=== PATIENT | male | born 1950 | race Caucasian/White ===

== ENCOUNTER 2018-05-08 09:24 | Day surgery (SDC) | payer OTHER ==
[2018-05-07 17:38] VITALS: BMI 30.8
[2018-05-08 09:51] LABS: BASO % 1.1 % (0-2.0); EOS % 1.8 % (0-4.5); HEMATOCRIT 40.4 % (35.4-49); HEMOGLOBIN 13.8 GM/dL (11.7-16.9); LYMPH % 24.4 % (8-40); MCH 31.7 pg (25.7-33.7); MEAN CELL VOLUME 93.2 fl (80-96); MONO % 8.4 % (3.8-10.2); NEUT % 64.3 % (42.8-82.8); PLATELET COUNT 346 K/MM3 (134-434); RBC 4.34 M/mm3 (4.00-5.60); RDW 12.4 % (11.9-15.9); WHITE BLOOD COUNT 7.1 K/mm3 (4.0-10.0)
[2018-05-08 12:47] LABS: INR 1.14 (0.82-1.09); PROTHROMBIN TIME (PATIENT) 12.9 SEC (9.7-13.0)
== END 2018-05-08 10:30 | disposition home or self-care (01) ==
LOC: JRADIR 09:24
PROVIDERS: ATTEND Internal Medicine Pulmonary Disease
PROC: 0W993ZZ Drainage of Right Pleural Cavity, Percutaneous Approach (ICD-10-PCS; principal; 2018-05-08)
DX: Z53.8 Procedure and treatment not carried out for other reasons (principal)
CPT/HCPCS: 36415; 85025; 85610

== ENCOUNTER 2018-05-14 05:50 | Day surgery (SDC) | payer OTHER ==
[2018-05-11 17:56] VITALS: BMI 30.8
[2018-05-14 09:23] VITALS: TEMP 98.5
[2018-05-14 13:13] VITALS: BP 143/93; PULSE 73
[2018-05-14 13:38] LABS: PLEURAL FLUID APPEARANCE CLEAR; PLEURAL FLUID COLOR YELLOW
[2018-05-14 13:39] LABS: PLEURAL FLUID RBC 1508 /mm3
[2018-05-14 14:35] LABS: PLEURAL FLUID LYMPHOCYTES 50 %; PLEURAL FLUID MONOCYTE 26 %; PLEURAL FLUID NEUTROPHIL 9 %
[2018-05-14 14:36] LABS: PLEURAL FLD EOSINOPHIL 14 %; PLEURAL FLUID MESOTHELIAL 2 %
[2018-05-14 20:29] LABS: GLUCOSE,PLEURAL FLUID 98.62
== END 2018-05-14 13:00 | disposition home or self-care (01) ==
LOC: JRADIR 05:50
PROVIDERS: ATTEND Internal Medicine Pulmonary Disease
PROC: 0W993ZZ Drainage of Right Pleural Cavity, Percutaneous Approach (ICD-10-PCS; principal; 2018-05-14)
PROC: BB4BZZZ Ultrasonography of Pleura (ICD-10-PCS; 2018-05-14)
DX: J90 Pleural effusion, not elsewhere classified (principal)
CPT/HCPCS: 32555; 71045-TC-FY; 76942; 82042; 82150; 82945; 83615; 84157; 84311; 84478; 87070; 87075; 87102; 87116; 87205; 87206; 87210; 88108; 88305-TC; 89051

== ENCOUNTER 2018-09-19 14:27 | Inpatient (IN) | payer OTHER ==
--- NOTE | 2018-09-19 15:20 | PDOC ---
History of Present Illness - General Chief Complaint: Pain Stated Complaint: PCP SENT/BACK PAIN Time Seen by Provider: 09/19/18 15:20 History Source: Patient Exam Limitations: No Limitations - History of Present Illness Initial Comments: 09/19/18 16:36 Mr Curran is a 68 year old male with a significant past medical history or recurrent pleural effusions and bronchopneumonia in April 2018 who presents to the emergency department with increased SOB and upper back pain for 5 days. As per the patient's at bedside, the patient was seen at his Dr. Cuellar today for his complaint and was sent here for further evaluation of concern for recurrent pleural effusion and progressive dyspnea (patients heart rate at office was 100 and blood pressure 150/100). As per the patient's , the patient has been experiencing some worsened shortness of breath with mild exertion and reproducible upper thoracic back pain and nonproductive coughing episodes . It is noted that the patient was seen in the hospital for bronchial pneumonia and a right sided parapneumonic pleural effusion in April 2018 s/p uncomplicated thoracentesis. the patient denies any other symptoms. He denies any fever, chills, nausea, vomiting, diarrhea, constipation, or urinary symptoms. He denies any headache, dizziness, numbness, weakness or tingling sensation. He denies any other complaints. PCP Dr Srikanth Grace: Dr. Martinez 09/19/18 17:18 09/19/18 18:03 Past History - Past Medical History Allergies/Adverse Reactions: Allergies Allergy/AdvReac Type Severity Reaction Status Date / Time No Known Drug Allergies Allergy Verified 05/07/18 17:46 Home Medications: Ambulatory Orders Aspirin Coated [Ecotrin -] 81 mg PO DAILY 05/07/18 Doxazosin Mesylate 4 mg PO DAILY 05/07/18 Multivitamin [One Daily] 1 each PO DAILY 05/07/18 Anemia: No Asthma: No Cancer: No Cardiac Disorders: No CVA: No COPD: No CHF: No Dementia: No Diabetes: No GI Disorders: No Disorders: No HTN: No Hypercholesterolemia: No Liver Disease: No Seizures: No Thyroid Disease: No Other medical history: PNA - Surgical History Cardiac Surgery: No Cholecystectomy: No - Suicide/Smoking/Psychosocial Hx Smoking History: Never smoked Have you smoked in the past 12 months: No If you are a former smoker, when did you quit?: 20yrs Information on smoking cessation initiated: No Hx Alcohol Use: No Drug/Substance Use Hx: No Substance Use Type: Alcohol Hx Substance Use Treatment: No Review of Systems - Review of Systems Able to Perform ROS?: Yes Comments:: 09/19/18 16:36 Constitutional: no fevers or chills. HEENT: no headache or dizziness. +congestion. No visual/hearing disturbances. CVS: (+) chest pain. no syncope. Resp: (+)shortness of breath. +cough. No hemoptysis or wheezing Abdomen: no abdominal pain, nausea or vomiting. Genitourinary: no urinary sx, hematuria. MUSCULOSKELETAL: (+)back pain. No joint pain and swelling. No neck pain. SKIN: no redness or skin changes, no discharge, no rash. No wounds. Hematologic: no easy bruising/bleeding. NEUROLOGIC: No headache, dizziness, LOC or altered mental status. No weakness, numbness or tingling. All other systems reviewed and negative, or as documented in HPI. *Physical Exam - Vital Signs Last Vital Signs Temp Pulse Resp BP Pulse Ox 98.9 F 92 H 16 151/89 95 09/19/18 15:10 09/19/18 15:10 09/19/18 15:10 09/19/18 15:10 09/19/18 15:10 - Physical Exam Comments: 09/19/18 16:36 General: Well appearing, awake and alert, NAD. HEENT: NCAT, PERRL, EOMI, clear conjunctiva, anicteric, moist mucus membranes, clear oropharynx, no oral lesions.. Neck: neck supple, FROM, no JVD Resp: (+)decreased breath sounds on the right side. no respiratory distress CVS: RRR, no murmurs, 2+ peripheral pulses throughout, no peripheral edema Abdomen: soft, NTND, no peritoneal signs. Back: (+)reproducible right upper thoracic back tenderness. normal ROM MSK: no edema, ALAS x4, ROM intact. No clubbing or cyanosis. normal bulk and tone. Extrem: no calf tenderness Neuro: alert, oriented appropriately; no focal neurologic deficits Skin: warm and well perfused, cap refill <2 sec, normal color Procedures - Bedside Ultrasound Bedside Ultrasound: Cardiac Remarks: 09/19/18 17:19 POCUS echo and thoracic exam performed, indication includes chest pain/dyspnea. views obtained (PSLA, PSS, A4, SX, b/l lung chong). Findings include normal EF , no pericardial effusion, primarily A lines, RV<LV. +right large pleural effusion with debris and subpleural fluid on right, limiting lung sliding. Impression: large right pleural effusion Heart Score/ECG Review - ECG Impressions Normal ECG: Yes Comment:: 09/19/18 16:37 EKG normal sinus rhythm, no interval abnormalities, narrow QRS, ST and T wave segments and morphology normal. Nonspecific T wave abnormalities ED Treatment Course - LABORATORY CBC & Chemistry Diagram: 09/19/18 15:31 09/19/18 15:31 Medical Decision Making - Medical Decision Making 09/19/18 18:03 68 YOM with prior bronchopneumonia presenting with [facility] and back pain x 5 days. no f/c or sick contacts or other prodrome. DDx CHF, ACS, pleural effusion, pneumonia, viral syndrome, PE, dissection Vital signs reviewed, wnl. mild elevated HR in 90s Prior notes reviewed, including admissions, discharges and consultations. laboratory results and imaging reviewed, basic labs and lytes wnl, notable for neg trop, less likely angina/cardiac CXR_earlier today reviewed with right pleural base blunting, improved from prior , could be new effusion vs infection EKG normal sinus rhythm, no interval abnormalities, narrow QRS, ST and T wave segments and morphology normal. Nonspecific T wave abnormalities ED course: no acute events, remained stable and well appearing. Clinically improved after interventions, including tylenol for analgesia. spiked a fever here Tmax 100.5, blood cultures ordered, treat with ceftriaxone and azithromycin. will need thora to send off culture/stain and chem. Heart visualized in four views using phased array probe ( sub-xiphoid, Parasternal long and short, and apical). normal EF, RV<LV, no pericardial effusion bilateral thorax visualized, large right pleural effusion and subpleural effusion. CTA neg for PE, but large right pleural effusion noted. atelectatic changes found in right lung called to Dr. Martinez, will need comprehensive echo and thoracentesis as inpatient. Dispo: Admit for management of right pleural effusion and dyspnea workup, abx for presumed pna now with fevers. Discussed results and management plan with pt and family member at bedside, agree with impression and plan admit to hospitalist team, pmd Dr. Duke 09/19/18 18:29 09/19/18 18:49 *DC/Admit/Observation/Transfer Diagnosis at time of Disposition: Pleural effusion, Fever, Pneumonia - Discharge Dispostion Condition at time of disposition: Guarded Decision to Admit order: Yes Decision to Admit order Date/Time: 09/19/18 18:09 Decision to Admit Order Category Date Time Status Decision to Admit to Hospital Routine Admission 09/19/18 18:09 Ordered - Referrals Referrals: Aldo Duke MD [Primary Care Provider] - - Patient Instructions - Post Discharge Activity
[2018-09-19 15:46] LABS: BASO % 0.7 % (0-2.0); EOS % 0.8 % (0-4.5); HEMATOCRIT 38.7 % (35.4-49); HEMOGLOBIN 13.4 GM/dL (11.7-16.9); MCH 32.2 pg (25.7-33.7); MCHC 34.7 g/dl (32.0-35.9); MEAN CELL VOLUME 92.8 fl (80-96); MEAN PLT VOLUME 8.4 fl (7.5-11.1); MONO % 10.6 % (3.8-10.2); NEUT % 70.9 % (42.8-82.8); PLATELET COUNT 249 K/MM3 (134-434); RBC 4.18 M/mm3 (4.00-5.60); RDW 13.3 % (11.9-15.9); WHITE BLOOD COUNT 9.9 K/mm3 (4.0-10.0)
[2018-09-19 16:03] LABS: INR 1.08 (0.83-1.09); PROTHROMBIN TIME (PATIENT) 12.7 SEC (9.7-13.0)
[2018-09-19 16:14] LABS: ALBUMIN 3.6 g/dl (3.4-5.0); ALK PHOS 68 U/L (45-117); ANION GAP 10 MMOL/L (8-16); BILIRUBIN,TOTAL 0.6 mg/dL (0.2-1); BLOOD UREA NITROGEN 13 mg/dL (7-18); CALCIUM 8.5 mg/dL (8.5-10.1); CHLORIDE 105 mmol/L (98-107); CO2 27 mmol/L (21-32); CREATININE 0.9 mg/dL (0.55-1.3); GLUCOSE,RANDOM 83 mg/dL (74-106); MAGNESIUM 2.2 mg/dL (1.8-2.4); SGOT/AST 16 U/L (15-37); SGPT/ALT 21 U/L (13-61); SODIUM 142 mmol/L (136-145); TOT PROT 6.9 g/dl (6.4-8.2)
[2018-09-19] MEDS ORDERED: ACETAMINOPHEN 325 MG TABLET (FP) PO ONE (18:04)
[2018-09-19] MEDS ORDERED: ACETAMINOPHEN 325 MG TABLET (FP) ONE (18:11)
[2018-09-19] MEDS ORDERED: CEFTRIAXONE 1,000 MG in DEXTROSE 5%-WATER - 50 ML IVPB ONE (18:28)
[2018-09-19] MEDS ORDERED: AZITHROMYCIN 500 MG TABLET PO ONE (18:28)
[2018-09-19] MEDS ORDERED: CEFTRIAXONE 1 GM/50 ML BAG ONE (18:48)
[2018-09-19] MEDS ORDERED: AZITHROMYCIN 250 MG TABLET ONE (18:48)
[2018-09-19 19:08] LABS: N-TERMINAL BNP 94.1 pg/ml (5-125)
--- NOTE | 2018-09-19 19:41 | PN ---
Teaching Attending Note Name of Resident: Fadi Veliz ATTENDING PHYSICIAN STATEMENT I saw and evaluated the patient. I reviewed the resident's note and discussed the case with the resident. I agree with the resident's findings and plan as documented. SUBJECTIVE: Patient is a 68 year old man with a PMH of recurrent pleural effusions and bronchopneumonia in April 2018 who presents to the ER with increased SOB and upper back pain for 5 days. As per the patient's at bedside, the patient was seen at Dr. Cuellar office today for his complaint and was sent here for further evaluation of concern for recurrent pleural effusion and progressive dyspnea (patients heart rate at office was 100 and blood pressure 150/100). Patient has been experiencing some worsened SOB with mild exertion and reproducible upper thoracic back pain and nonproductive coughing episodes. Patient was seen in the hospital for bronchial pneumonia and a right sided parapneumonic pleural effusion in April 2018 s/p uncomplicated thoracentesis. He denies fever, chills, nausea, vomiting, diarrhea, constipation or dysuria. OBJECTIVE: Alert Vital Signs Period Temp Pulse Resp BP Sys/Bang Pulse Ox Last 24 Hr 98 F-100.5 F 88-95 16-18 151-167/89-96 95-100 HEENT: No Jaundice, eye redness or discharge, PERRLA, EOMI. Normocephalic, atraumatic. External ears are normal and hearing is grossly intact. No nasal discharge. Neck: Supple, nontender. No palpable adenopathy or thyromegaly. No JVD Chest: Diminished breath sounds right base. Good effort. Clear to percussion. Heart: Regular. No S3, rub or murmur Abdomen: Not distended, soft, nontender and no HSM. No rebound or guarding. Normoactive bowel sounds. Ext: Peripheral pulses intact. No leg edema. Skin: Warm and dry. No petechiae, rash or ecchymosis. Neuro: Alert. Oriented x3. CN 2-12 grossly intact. Sensation grossly intact in all four extremities and DTR are symmetric. Home Medications Medication Instructions Recorded Aspirin Coated [Ecotrin -] 81 mg PO DAILY 05/07/18 Doxazosin Mesylate 4 mg PO DAILY 05/07/18 Multivitamin [One Daily] 1 each PO DAILY 05/07/18 Abnormal Lab Results 09/19/18 15:31 Monocytes % 10.6 H ASSESSMENT AND PLAN: 1. Right pleural effusion - Patient has recurrent right side effusion with prior analysis showing a transudate. Will consult IR for therapeutic thoracentesis, get ECHO and legionella/influenza testing in view of URI symptoms. Consult Pulmonary/ID for fpc plan of care for recurrent effusion. No indication for antibiotics at this time. 2. Obesity - Will provide patient all the necessary assistance, counseling and positive reinforcement to facilitate weight loss. Consult vp hr diversity. 3. DVT prophylaxis - Lovenox 40 mg SQ q 24 hours. 4. Advance directives - Full code
[2018-09-20 04:18] VITALS: BMI 30.2
[2018-09-20] MEDS ORDERED: amLODIPine BESYLATE 5 MG TABLET (FP) PO ONE (04:27)
--- NOTE | 2018-09-20 05:06 | HP ---
CHIEF COMPLAINT: Non productive cough, shortness of breath PCP: Dr. Duke HISTORY OF PRESENT ILLNESS: Patient is a 68 year old male with history of BPH, and prior pleural effusion s/ p thoracentesis 05/2018, presents with complaint of nonproductive cough and shortness of breath for the past 5 days. Symptoms began approx 2 weeks ago with nasal congestion, rhinnorhea, and sore throat. The symptoms resolved, and patient now complains only of cough. Endorses associated sharp, midline, chest pain reproducible with cough, and upper back pain also described as sharp by right scapular border with cough. Endorses the upper back pain is similar to pain he experienced with prior pleural effusion. He has not tried any medications for palliation, however did see Dr. Martinez who recommended he come to the emergency department for further evaluation. Denies falls, loss of conciousness, fevers, chills, palpitations, abdominal pain, nausea, vomiting, diarrhea, constipation, dysuria, hematuria. ER course was notable for: (1) Chest X-ray, CTA chest (2) Azithromycin 500mg PO (3) PAST MEDICAL HISTORY: BPH, prior pleural effusion s/p thoracentesis 05/2018 PAST SURGICAL HISTORY: thoracentesis 05/2018 Social History: Smoking: Former smoker of 1 pack per day for 20 years. Quit 20 years ago. Alcohol: Admits one alcoholic drink per day Drugs: denies Family History: Father at 61 y/o due to CT. Mother massed away at 70 year old due to liver cancer Allergies: Denies food or medication allergies No Known Drug Allergies Allergy (Verified 05/07/18 17:46) HOME MEDICATIONS: Home Medications Medication Instructions Recorded Aspirin Coated [Ecotrin -] 81 mg PO DAILY 05/07/18 Doxazosin Mesylate 4 mg PO DAILY 05/07/18 Multivitamin [One Daily] 1 each PO DAILY 05/07/18 REVIEW OF SYSTEMS CONSTITUTIONAL: Absent: fever, chills, diaphoresis, generalized weakness, malaise, loss of appetite, weight change HEENT: Absent: rhinorrhea, nasal congestion, throat pain, throat swelling, difficulty swallowing, mouth swelling, ear pain, eye pain, visual changes CARDIOVASCULAR: Absent: chest pain, syncope, palpitations, irregular heart rate, lightheadedness , peripheral edema RESPIRATORY: Admits: nonproductive cough, shortness of breath. Absent: dyspnea with exertion , orthopnea, wheezing, stridor, hemoptysis GASTROINTESTINAL: Absent: abdominal pain, abdominal distension, nausea, vomiting, diarrhea, constipation, melena, hematochezia GENITOURINARY: Absent: dysuria, frequency, urgency, hesitancy, hematuria, flank pain, genital pain MUSCULOSKELETAL: Absent: myalgia, arthralgia, joint swelling, back pain, neck pain SKIN: Absent: rash, itching, pallor HEMATOLOGIC/IMMUNOLOGIC: Absent: easy bleeding, easy bruising, lymphadenopathy, frequent infections ENDOCRINE: Absent: unexplained weight gain, unexplained weight loss, heat intolerance, cold intolerance NEUROLOGIC: Absent: headache, focal weakness or paresthesias, dizziness, unsteady gait, seizure, mental status changes, bladder or bowel incontinence PSYCHIATRIC: Absent: anxiety, depression, suicidal or homicidal ideation, hallucinations. PHYSICAL EXAMINATION Vital Signs - 24 hr 09/19/18 09/19/18 09/19/18 14:27 15:10 16:43 Temperature 98 F 98.9 F Pulse Rate 95 H Pulse Rate [ 92 H 88 Left Apical] Respiratory 16 16 16 Rate Blood Pressure 156/92 Blood Pressure 151/89 163/95 [Left Arm] O2 Sat by Pulse 96 95 98 Oximetry (%) 09/19/18 09/19/18 09/19/18 18:15 22:00 22:04 Temperature 100.5 F H 98.3 F 98.3 F Pulse Rate 86 86 Pulse Rate [ 92 H Left Apical] Respiratory 18 20 20 Rate Blood Pressure 148/96 148/96 Blood Pressure 167/96 [Left Arm] O2 Sat by Pulse 100 100 Oximetry (%) 09/20/18 02:04 Temperature 98.1 F Pulse Rate 86 Pulse Rate [ Left Apical] Respiratory 20 Rate Blood Pressure 158/96 Blood Pressure [Left Arm] O2 Sat by Pulse Oximetry (%) GENERAL: Awake, alert, and fully oriented, in no acute distress. HEAD: Normal with no signs of trauma. EYES: Pupils equal, round and reactive to light, extraocular movements intact, sclera anicteric, conjunctiva clear. No lid lag. EARS, NOSE, THROAT: Ears normal, nares patent, oropharynx clear without exudates. Moist mucous membranes. NECK: Normal range of motion, supple without lymphadenopathy, JVD, or masses. LUNGS: Good inspiratory effort. Diminished air entry right lower lobe of lung. Dullness to percussion lower lower third of right lung. No wheezes, or rhonchi auscultated b/l. No accessory muscles of respiration used. HEART: Regular rate and rhythm, normal S1 and S2 with 3/6 holosystolic murmur auscultated loudest at right upper sternal border radiating to b/l carotid arteries. ABDOMEN: Soft, nontender, not distended. Normoactive bowel sounds X4 quadrants. No guarding, no rebound tenderness. No hepatomegaly or splenomegaly palpated or percussed. MUSCULOSKELETAL: Normal range of motion at all joints. No bony deformities or tenderness. No CVA tenderness. UPPER EXTREMITIES: 2+ radial pulses b/l, warm, well-perfused. LOWER EXTREMITIES: 2+ dorsalis pedis pulses b/l, warm, well-perfused. No calf tenderness. No peripheral edema b/l. NEUROLOGICAL: Cranial nerves II-XII intact. Normal speech. Normal gait. PSYCHIATRIC: Cooperative. Good eye contact. Appropriate mood and affect upon my encounter. SKIN: Warm, dry. Laboratory Results - last 24 hr 09/19/18 09/19/18 09/19/18 15:31 15:31 15:31 WBC 9.9 RBC 4.18 Hgb 13.4 Hct 38.7 MCV 92.8 MCH 32.2 MCHC 34.7 RDW 13.3 Plt Count 249 D MPV 8.4 Absolute Neuts (auto) 7.0 Neutrophils % 70.9 Lymphocytes % 17.0 D Monocytes % 10.6 H Eosinophils % 0.8 Basophils % 0.7 Nucleated RBC % 0 PT with INR 12.70 INR 1.08 Sodium 142 Potassium 4.0 Chloride 105 Carbon Dioxide 27 Anion Gap 10 BUN 13 Creatinine 0.9 Creat Clearance w eGFR > 60 Random Glucose 83 Calcium 8.5 Magnesium 2.2 Total Bilirubin 0.6 AST 16 ALT 21 Alkaline Phosphatase 68 Creatine Kinase 129 Troponin I < 0.02 B-Natriuretic Peptide 94.1 Total Protein 6.9 Albumin 3.6 Blood Type Antibody Screen 09/19/18 09/19/18 16:19 22:00 WBC RBC Hgb Hct MCV MCH MCHC RDW Plt Count MPV Absolute Neuts (auto) Neutrophils % Lymphocytes % Monocytes % Eosinophils % Basophils % Nucleated RBC % PT with INR INR Sodium Potassium Chloride Carbon Dioxide Anion Gap BUN Creatinine Creat Clearance w eGFR Random Glucose Calcium Magnesium Total Bilirubin AST ALT Alkaline Phosphatase Creatine Kinase Troponin I B-Natriuretic Peptide Total Protein Albumin Blood Type A POSITIVE A POSITIVE Antibody Screen Negative ASSESSMENT/PLAN: Patient is a 68 year old male with history of BPH, and prior pleural effusion s/ p thoracentesis 05/2018, presents with complaint of nonproductive cough and shortness of breath for the past 5 days. Pleural effusion right lower lobe -CTA confirms large pleural effusion. Negative for infiltrate, pericardial effusion, or pulmonary embolism. Prior effusion also localized to RLL. AFB negative, however no pathology noted. Appears to have been ?transudative -F/U pulmonology consult Dr. Martinez -F/U cardiac ECHO to rule out cardiac etiology of recurrent effusion -NPO pending pulmonology evaluation, and thoracentesis BPH -Doxazosin 4mg PO daily FEN -No IV fluids -Follow CMP -NPO Prophylaxis -SCDs, TEDs b/l lower extremities. Holding chemical anticoagulation in anticipation for likely thoracentesis Disposition -Observe in medical surgical floor. Visit type - Emergency Visit Emergency Visit: Yes ED Registration Date: 09/19/18 Care time: The patient presented to the Emergency Department on the above date and was hospitalized for further evaluation of their emergent condition. - New Patient This patient is new to me today: Yes Date on this admission: 09/20/18 - Critical Care Critical Care patient: No
[2018-09-20 07:29] LABS: HEMATOCRIT 41.2 % (35.4-49); HEMOGLOBIN 13.9 GM/dL (11.7-16.9); MCH 31.3 pg (25.7-33.7); MCHC 33.7 g/dl (32.0-35.9); MEAN PLT VOLUME 8.5 fl (7.5-11.1); PLATELET COUNT 232 K/MM3 (134-434); RBC 4.43 M/mm3 (4.00-5.60); RDW 13.3 % (11.9-15.9); WHITE BLOOD COUNT 8.5 K/mm3 (4.0-10.0)
[2018-09-20 07:50] LABS: INR 1.07 (0.83-1.09); PROTHROMBIN TIME (PATIENT) 12.6 SEC (9.7-13.0)
[2018-09-20 07:53] LABS: ACTIVATED PTT 30.9 SECONDS (25.2-36.5)
[2018-09-20 07:54] LABS: ALBUMIN 3.5 g/dl (3.4-5.0); ALK PHOS 74 U/L (45-117); ANION GAP 10 MMOL/L (8-16); BILIRUBIN,TOTAL 0.8 mg/dL (0.2-1); BLOOD UREA NITROGEN 11 mg/dL (7-18); CALCIUM 8.7 mg/dL (8.5-10.1); CHLORIDE 105 mmol/L (98-107); CO2 25 mmol/L (21-32); CREATININE 0.7 mg/dL (0.55-1.3); GLUCOSE,RANDOM 89 mg/dL (74-106); MAGNESIUM 2.2 mg/dL (1.8-2.4); PHOSPHOROUS 3.1 mg/dL (2.5-4.9); POTASSIUM 4.5 mmol/L (3.5-5.1); SGOT/AST 17 U/L (15-37); SGPT/ALT 19 U/L (13-61); SODIUM 140 mmol/L (136-145)
[2018-09-20] MEDS ORDERED: PT OWN MED DRAWER 7, Y5N ONE (09:45)
[2018-09-20] MEDS ORDERED: DOXAZOSIN MESYLATE 4 MG TABLET PO SCH ×2 (10:00→10:36)
--- NOTE | 2018-09-20 10:13 | PN ---
Progress Note, Physician Chief Complaint: Pt sitting in bed in no acute distress. reports sob over the last 5 days similar to prev time when he had pleural effusion. also reports pleuritic pain. Otherwise, denies any worsening sob, chest pain, n/v/d - Current Medication List Current Medications: Active Medications Doxazosin Mesylate (Cardura -) 4 mg PO DAILY CEFERINO - Objective Vital Signs: Vital Signs Temperature 98.0 F 09/20/18 07:09 Pulse Rate 91 H 09/20/18 07:09 Respiratory Rate 20 09/20/18 07:09 Blood Pressure 143/86 09/20/18 07:09 O2 Sat by Pulse Oximetry (%) 100 09/20/18 06:04 Constitutional: Yes: Well Nourished, No Distress, Calm Cardiovascular: Yes: Regular Rate and Rhythm, Murmur Respiratory: Yes: Regular, Diminished (diminished to absent RLL,RML), SOB. No: Accessory Muscle Use, Tachypnea, Wheezes Gastrointestinal: Yes: WNL, Normal Bowel Sounds, Soft. No: Distention, Tenderness Genitourinary: Yes: WNL Musculoskeletal: Yes: WNL Extremities: Yes: WNL Edema: No Neurological: Yes: WNL, Alert, Oriented Psychiatric: Yes: WNL, Alert, Oriented Labs: CBC, BMP 09/20/18 06:00 09/20/18 06:00 INR, PTT INR 1.07 (0.83-1.09) 09/20/18 06:00 Problem List - Problems (1) Pleural effusion Assessment/Plan: s/p right thoracentesis 04/30- pleural fluid exudate, cytology not sent at that time now presents with large right pleural effusion w/ compressive atelectasis +febrile, cough, tachycardia, +pleurisy pt clinically appears well, satting high 90s on RA antibx coverage for hcap- azithromycin, ceftriaxone day 2 plan for thoracentesis today repeat chest CT post procedure pleural fluid culture/analysis/cytology studies ordered pulm following Code(s): J90 - PLEURAL EFFUSION, NOT ELSEWHERE CLASSIFIED (2) Pneumonia Assessment/Plan: as above Code(s): J18.9 - PNEUMONIA, UNSPECIFIED ORGANISM Qualifiers: Laterality: right Lung location: lower lobe of lung (3) Fever Assessment/Plan: 2/2 pna Code(s): R50.9 - FEVER, UNSPECIFIED Qualifiers: Encounter type: initial encounter (4) BPH (benign prostatic hyperplasia) Assessment/Plan: stable continue cardura Code(s): N40.0 - BENIGN PROSTATIC HYPERPLASIA WITHOUT LOWER URINRY TRACT SYMP Qualifiers: Lower urinary tract symptom presence: symptoms absent Qualified Code(s): N40.0 - Benign prostatic hyperplasia without lower urinary tract symptoms (5) Elevated BP without diagnosis of hypertension Assessment/Plan: BP in 140s-150s cardura increased to 8mg defer initiation of antihypersive agents to outpt as bps could be situational monitor Code(s): R03.0 - ELEVATED BLOOD-PRESSURE READING, W/O DIAGNOSIS OF HTN
--- NOTE | 2018-09-20 11:11 | EKG ---
Test Reason : Blood Pressure : / mmHG Vent. Rate : 095 BPM Atrial Rate : 095 BPM P-R Int : 152 ms QRS Dur : 088 ms QT Int : 346 ms P-R-T Axes : 038 -18 052 degrees QTc Int : 434 ms NORMAL SINUS RHYTHM MODERATE VOLTAGE CRITERIA FOR LVH, MAY BE NORMAL VARIANT BORDERLINE ECG NO PREVIOUS ECGS AVAILABLE Confirmed by HAYLEY HUBBARD MD ([id number]) on 09/20/2018 11:10:41 AM Referred By: Confirmed By:HAYLEY HUBBARD MD
--- NOTE | 2018-09-20 11:31 | ECHO ---
Name: MASTER RICH Exam:Adult Echocardiogram Study Date: 09/20/2018 08:23 AM Age: 68 yrs Reason For Study: r/o valvular disease, murmur, pt has pneumonia Height: 70 in Weight: 210 lb BSA: 2.1 m2 MMode/2D Measurements & Calculations IVSd: 1.0 cm Ao root diam: 3.1 cm LVIDd: 4.4 cm LA dimension: 2.5 cm LVIDs: 3.3 cm LVPWd: 1.1 cm LVPWs: 0.90 cm EDV(Teich): 89.9 ml ESV(Teich): 44.6 ml LVOT diam: 2.0 cm TAPSE: 2.1 cm Doppler Measurements & Calculations MV E max farzad: 68.6 cm/sec Ao V2 max: 324.8 cm/sec MV A max farazd: 92.8 cm/sec Ao max P.6 mmHg MV E/A: 0.74 Ao V2 mean: 241.0 cm/sec MV dec time: 0.11 sec Ao mean P.7 mmHg Ao V2 VTI: 74.3 cm AI P1/2t: 309.0 msec ASIF(V,D): 0.92 cm2 AI max farzad: 365.3 cm/sec LV V1 max P.6 mmHg AI max P.4 mmHg LV V1 max: 94.8 cm/sec AI dec slope: 346.2 cm/sec2 MR max farzad: 323.9 cm/sec TV V2 max: 271.5 cm/sec MR max P.0 mmHg TV max P.5 mmHg PA V2 max: 115.4 cm/sec Med Peak E' Farzad: 4.4 cm/sec PA max P.3 mmHg Med E/e': 15.6 Lat Peak E' Farzad: 5.7 cm/sec Lat E/e': 12.1 Procedure A complete two-dimensional transthoracic echocardiogram was performed (2D, M-mode, Doppler and color flow Doppler). Left Ventricle The left ventricular size, thickness and function are normal. The left ventricular ejection fraction is normal. Ejection Fraction = 60-65%. The left ventricular wall motion is normal. Right Ventricle The right ventricle is normal in size and function. Atria Normal left and right atrial size and function. Mitral Valve There is no mitral regurgitation noted. Tricuspid Valve No tricuspid regurgitation. There was insufficient TR detected to calculate RV systolic pressure. Aortic Valve Moderate valvular aortic stenosis. Trace aortic regurgitation. Pulmonic Valve There is no pulmonic valvular regurgitation. Great Vessels The aortic root is normal size. Pericardium/Pleura There is no pericardial effusion. Interpretation Summary The left ventricular size, thickness and function are normal The right ventricle is normal in size and function. Trace aortic regurgitation. Moderate valvular aortic stenosis. MD Jae Mac 09/20/2018 11:30 AM
--- NOTE | 2018-09-20 11:57 | CON.PULM ---
Consult Consult Specialty:: PULMONARY Referred by:: Dr. Martinez Reason for Consultation:: pleural effusion - History of Present Illness Chief Complaint: shortness of breath History of Present Illness: 68yo male with h/o BPH who presents with worsening shortness of breath and cough x 5 days. Found to have a large right sided pleural effusion. He was found to have a large right sided pleural effusion in April and had a thoracentesis in May with the fluid analysis consistent with an exudate. Cultures were negative but cytology does not appear to have been sent. He denies any chest pain or discomfort other than when coughing. No fevers, chills or sweats. No unintentional weight loss. He is a former smoker about 1 PPD x 20 years, quit over 30 years ago. No history of cancer in the family. - History Source History Provided By: Patient, Medical Record Limitations to Obtaining History: No Limitations - Past Medical History Renal/: Yes: BPH - Alcohol/Substance Use Hx Alcohol Use: No - Smoking History Smoking history: Former smoker Have you smoked in the past 12 months: No If you are a former smoker, when did you quit?: 20yrs Home Medications - Allergies Allergies/Adverse Reactions: Allergies Allergy/AdvReac Type Severity Reaction Status Date / Time No Known Drug Allergies Allergy Verified 05/07/18 17:46 - Home Medications Home Medications: Ambulatory Orders Aspirin Coated [Ecotrin -] 81 mg PO DAILY 05/07/18 Doxazosin Mesylate 4 mg PO DAILY 05/07/18 Multivitamin [One Daily] 1 each PO DAILY 05/07/18 Review of Systems - Review of Systems Constitutional: denies: Chills, Fever, Weakness Eyes: denies: Recent Change in Vision HENT: denies: Nasal Congestion, Throat Pain Neck: denies: Stiffness, Tenderness Cardiovascular: reports: Chest Pain, Shortness of Breath Respiratory: reports: Cough. denies: Hemoptysis, Wheezing Gastrointestinal: denies: Abdominal Pain, Nausea, Vomiting Genitourinary: denies: Dysuria, Hematuria Neurological: denies: Dizziness, Headache Endocrine: denies: Unexplained Weight Loss Physical Exam Vital Sings: Vital Signs Temperature 98.0 F 09/20/18 07:09 Pulse Rate 91 H 09/20/18 07:09 Respiratory Rate 20 09/20/18 07:09 Blood Pressure 143/86 09/20/18 07:09 O2 Sat by Pulse Oximetry (%) 100 09/20/18 06:04 Constitutional: Yes: No Distress, Calm Eyes: Yes: Conjunctiva Clear, EOM Intact HENT: Yes: Atraumatic, Normocephalic Neck: Yes: Supple, Trachea Midline Cardiovascular: Yes: Regular Rate and Rhythm, Murmur Respiratory: Yes: Diminished (decreased breath sounds right base 1/2 up) ...Clubbing: No Gastrointestinal: Yes: Normal Bowel Sounds, Soft. No: Tenderness Edema: No Neurological: Yes: Alert, Oriented Labs: CBC, BMP 09/20/18 06:00 09/20/18 06:00 Imaging - Results Chest X-ray: Report Reviewed, Image Reviewed Cat Scan: Report Reviewed, Image Reviewed (large right effusion with atelectasis ) Problem List - Problems (1) Pleural effusion Code(s): J90 - PLEURAL EFFUSION, NOT ELSEWHERE CLASSIFIED (2) BPH (benign prostatic hyperplasia) Code(s): N40.0 - BENIGN PROSTATIC HYPERPLASIA WITHOUT LOWER URINRY TRACT SYMP Qualifiers: Lower urinary tract symptom presence: symptoms absent Qualified Code(s): N40.0 - Benign prostatic hyperplasia without lower urinary tract symptoms Assessment/Plan Right Pleural Effusion BPH - recommend right sided thoracentesis - send fluid for cell count, LDH, total protein, glucose, cholesterol, cultures and cytology - add on LDH to serum studies from same day as thoracentesis - may need repeat CT chest noncontrast after fluid drained to assess underlying pulmonary parenchyma - DVT prophylaxis Thank you for this consult Jm Lozano MD
[2018-09-20] MEDS ORDERED: DEXTROSE 5%-WATER - 50 ML IVPB ONE (12:11)
[2018-09-20] MEDS ORDERED: cefTRIAXone SODIUM 1 GM VIAL ONE (12:11)
[2018-09-20 15:25] LABS: PLEURAL FLUID APPEARANCE CLEAR; PLEURAL FLUID COLOR YELLOW; PLEURAL FLUID RBC 1920 /mm3
[2018-09-20] MEDS: AZITHROMYCIN 250 MG TABLET PO SCH (15:33)
[2018-09-20] MEDS: CEFTRIAXONE 1 GM in DEXTROSE 5%-WATER - 50 ML IVPB SCH (15:33)
[2018-09-20 18:02] LABS: BODY FLUID MACROPHAGES 15 %; BODY FLUID MESOTHELIAL 10 %; PLEURAL FLUID LYMPHOCYTES 30 %; PLEURAL FLUID NEUTROPHIL 45 %
[2018-09-21 07:19] LABS: BASO % 0.5 % (0-2.0); EOS % 0.9 % (0-4.5); HEMATOCRIT 44.3 % (35.4-49); LYMPH % 20.5 % (8-40); MCH 31.8 pg (25.7-33.7); MCHC 33.8 g/dl (32.0-35.9); MEAN CELL VOLUME 93.9 fl (80-96); MEAN PLT VOLUME 8.4 fl (7.5-11.1); MONO % 7.2 % (3.8-10.2); NEUT % 70.9 % (42.8-82.8); PLATELET COUNT 270 K/MM3 (134-434); RBC 4.72 M/mm3 (4.00-5.60); RDW 13.3 % (11.9-15.9); WHITE BLOOD COUNT 8.8 K/mm3 (4.0-10.0)
[2018-09-21 08:26] LABS: ANION GAP 13 MMOL/L (8-16); BLOOD UREA NITROGEN 15 mg/dL (7-18); CALCIUM 9.2 mg/dL (8.5-10.1); CHLORIDE 104 mmol/L (98-107); CO2 24 mmol/L (21-32); CREATININE 0.9 mg/dL (0.55-1.3); GLUCOSE,RANDOM 92 mg/dL (74-106); POTASSIUM 4.1 mmol/L (3.5-5.1); SODIUM 141 mmol/L (136-145)
[2018-09-21] MEDS ORDERED: cefTRIAXone SODIUM 1 GM VIAL ONE (09:02)
[2018-09-21] MEDS ORDERED: DEXTROSE 5%-WATER - 50 ML IVPB ONE (09:02)
[2018-09-21] MEDS ORDERED: PT OWN MED DRAWER 7, Y5N ONE (09:03)
[2018-09-21] MEDS: AZITHROMYCIN 250 MG TABLET PO SCH (09:53)
[2018-09-21] MEDS: CEFTRIAXONE 1 GM in DEXTROSE 5%-WATER - 50 ML IVPB SCH (09:54)
--- NOTE | 2018-09-21 11:45 | CON.CARD ---
Cardiology Consult (text) - Consultation Consultation Note: cc: sob hpi: 68 m hx bph here with sob, cough for 5 days. Had right pleural eff 2017 and was drained, exudative. No cp, palps dizzy loc pnd orthopnea le edema. Now ct here again shows large right eff, s/p thoracentesis again yesterday, sob better now. pmh: per hpi psh: per hpi social: ex tob fam: no premature cad, scd ros: per hpi; no nvd vision changes gib hematuria, dysuria muscle pain fever meds: Home Medications Medication Instructions Recorded Aspirin Coated [Ecotrin -] 81 mg PO DAILY 05/07/18 Doxazosin Mesylate 4 mg PO DAILY 05/07/18 Multivitamin [One Daily] 1 each PO DAILY 05/07/18 pe: Vital Signs Period Temp Pulse Resp BP Sys/Bang Pulse Ox Last 24 Hr 98.0 F-98.9 F 88-99 18-20 126-138/82-98 98 nad no jvd rrr s1s2 +as murmur, no rg cta bl nl eff aaox3 no le e/c/c abd nt nd pos bs no jaundice diaphoresis pos dp pt no carotid bruits Laboratory Last Values WBC 8.8 K/mm3 (4.0-10.0) 09/21/18 06:00 RBC 4.72 M/mm3 (4.00-5.60) 09/21/18 06:00 Hgb 15.0 GM/dL (11.7-16.9) 09/21/18 06:00 Hct 44.3 % (35.4-49) 09/21/18 06:00 MCV 93.9 fl (80-96) 09/21/18 06:00 MCH 31.8 pg (25.7-33.7) 09/21/18 06:00 MCHC 33.8 g/dl (32.0-35.9) 09/21/18 06:00 RDW 13.3 % (11.9-15.9) 09/21/18 06:00 Plt Count 270 K/MM3 (134-434) 09/21/18 06:00 MPV 8.4 fl (7.5-11.1) 09/21/18 06:00 Absolute Neuts (auto) 6.3 K/mm3 (1.5-8.0) 09/21/18 06:00 Neutrophils % 70.9 % (42.8-82.8) 09/21/18 06:00 Lymphocytes % 20.5 % (8-40) D 09/21/18 06:00 Monocytes % 7.2 % (3.8-10.2) 09/21/18 06:00 Eosinophils % 0.9 % (0-4.5) 09/21/18 06:00 Basophils % 0.5 % (0-2.0) 09/21/18 06:00 Nucleated RBC % 0 % (0-0) 09/21/18 06:00 PT with INR 12.60 SEC (9.7-13.0) 09/20/18 06:00 INR 1.07 (0.83-1.09) 09/20/18 06:00 PTT (Actin FS) 30.9 SECONDS (25.2-36.5) 09/20/18 06:00 Sodium 141 mmol/L (136-145) 09/21/18 06:00 Potassium 4.1 mmol/L (3.5-5.1) 09/21/18 06:00 Chloride 104 mmol/L (98-107) 09/21/18 06:00 Carbon Dioxide 24 mmol/L (21-32) 09/21/18 06:00 Anion Gap 13 MMOL/L (8-16) 09/21/18 06:00 BUN 15 mg/dL (7-18) 09/21/18 06:00 Creatinine 0.9 mg/dL (0.55-1.3) 09/21/18 06:00 Creat Clearance w eGFR > 60 (>60) 09/21/18 06:00 Random Glucose 92 mg/dL (74-106) 09/21/18 06:00 Calcium 9.2 mg/dL (8.5-10.1) 09/21/18 06:00 Phosphorus 3.1 mg/dL (2.5-4.9) 09/20/18 06:00 Magnesium 2.2 mg/dL (1.8-2.4) 09/20/18 06:00 Total Bilirubin 0.8 mg/dL (0.2-1) 09/20/18 06:00 AST 17 U/L (15-37) 09/20/18 06:00 ALT 19 U/L (13-61) 09/20/18 06:00 Alkaline Phosphatase 74 U/L (45-117) 09/20/18 06:00 Creatine Kinase 129 IU/L (26-308) 09/19/18 15:31 Troponin I < 0.02 ng/ml (0.00-0.05) 09/19/18 15:31 B-Natriuretic Peptide 94.1 pg/ml (5-125) 09/19/18 15:31 Total Protein 7.0 g/dl (6.4-8.2) 09/20/18 06:00 Albumin 3.5 g/dl (3.4-5.0) 09/20/18 06:00 Fluid Other Cells Binder Layer 09/20/18 13:45 Pleural Fluid Source Pleural 09/20/18 13:45 Pleural Color Yellow 09/20/18 13:45 Pleural Appearance Clear 09/20/18 13:45 Pleural WBC 740 /mm3 09/20/18 13:45 Pleural RBC 1920 /mm3 09/20/18 13:45 Pleural Neutrophils 45 % 09/20/18 13:45 Pleural Lymphocytes 30 % 09/20/18 13:45 Pleural Macrophages 15 % 09/20/18 13:45 Pleural Mesothelial 10 % 09/20/18 13:45 Blood Type A POSITIVE 09/19/18 22:00 Antibody Screen Negative 09/19/18 16:19 ecg: sr, nl intervals, no ischemic changes cta chest: no pe, large right eff echo 09/2018: nl lv/rv, mod as a/p: 68 m hx bph here with sob, cough for 5 days. sob, pleural eff: -Had right pleural eff 05/2018 and thoracentesis showing exudative fluid. Now ct here again shows large right eff, s/p thoracentesis again. -no signs of chf, bnp low, echo w/o etiology for right sided effusion -plans per pulm as: -echo shows moderate -no signs of symptomatic , routine outpt monitoring
--- NOTE | 2018-09-21 12:28 | PN ---
Progress Note, Physician - Current Medication List Current Medications: Active Medications Azithromycin (Zithromax -) 500 mg PO DAILY [facility] Stop: 09/22/18 10:01 Last Admin: 09/21/18 09:53 Dose: 500 mg Doxazosin Mesylate (Cardura -) 8 mg PO DAILY [facility] Last Admin: 09/21/18 09:54 Dose: 8 mg Ceftriaxone Sodium 1 gm/ (Dextrose) 50 mls @ 100 mls/hr IVPB DAILY CEFERINO; Protocol Last Admin: 09/21/18 09:54 Dose: 100 mls/hr - Objective Vital Signs: Vital Signs Temperature 98.2 F 09/21/18 06:00 Pulse Rate 88 09/21/18 06:00 Respiratory Rate 18 09/21/18 06:00 Blood Pressure 138/85 09/21/18 06:00 O2 Sat by Pulse Oximetry (%) 98 09/20/18 21:00 Labs: CBC, BMP 09/21/18 06:00 09/21/18 06:00 INR, PTT INR 1.07 (0.83-1.09) 09/20/18 06:00 Problem List - Problems (1) Pleural effusion Code(s): J90 - PLEURAL EFFUSION, NOT ELSEWHERE CLASSIFIED (2) Pneumonia Code(s): J18.9 - PNEUMONIA, UNSPECIFIED ORGANISM Qualifiers: Laterality: right Lung location: lower lobe of lung (3) Fever Code(s): R50.9 - FEVER, UNSPECIFIED Qualifiers: Encounter type: initial encounter (4) BPH (benign prostatic hyperplasia) Code(s): N40.0 - BENIGN PROSTATIC HYPERPLASIA WITHOUT LOWER URINRY TRACT SYMP Qualifiers: Lower urinary tract symptom presence: symptoms absent Qualified Code(s): N40.0 - Benign prostatic hyperplasia without lower urinary tract symptoms (5) Elevated BP without diagnosis of hypertension Code(s): R03.0 - ELEVATED BLOOD-PRESSURE READING, W/O DIAGNOSIS OF HTN
--- NOTE | 2018-09-21 13:36 | PN ---
Progress Note (short form) - Note Progress Note: PULMONARY CHART REVIEWED PATIENT EXAMINED STABLE POST TAP AWAIT CYTOLOGY NO OBJECTION TO DISCHARGE F/U OUTPATIENT Elida FOSTER MD
--- NOTE | 2018-09-21 13:45 | DS ---
Physical Examination Vital Signs: Vital Signs Temperature 98.2 F 09/21/18 06:00 Pulse Rate 88 09/21/18 10:00 Respiratory Rate 18 09/21/18 10:00 Blood Pressure 144/84 09/21/18 10:00 O2 Sat by Pulse Oximetry (%) 95 09/21/18 09:00 Constitutional: Yes: Well Nourished, No Distress, Calm Cardiovascular: Yes: Regular Rate and Rhythm, Murmur Respiratory: Yes: Regular, Diminished (RLL), Rales. No: Accessory Muscle Use, Rhonchi, SOB, Tachypnea, Wheezes Gastrointestinal: Yes: WNL, Normal Bowel Sounds, Soft. No: Distention, Tenderness Renal/: Yes: WNL Edema: No Neurological: Yes: WNL, Alert, Oriented Psychiatric: Yes: WNL, Alert, Oriented Labs: CBC, BMP 09/21/18 06:00 09/21/18 06:00 Discharge Summary Reason For Visit: PLEURAL EFFUSION,FEVER,PNEUMONIA Current Active Problems BPH (benign prostatic hyperplasia) (Acute) Elevated BP without diagnosis of hypertension (Acute) Fever (Acute) Pleural effusion (Acute) Pneumonia (Acute) Hospital Course: 68 year old male h significant for pleural effusion in 04/30 admitted for recurrent large right pleural effusion with compressive atelectasis. cytology was not sent previously. Pt underwent thoracentesis yesterday, improvement of sob. pleural fluid exudate, culture/analysis and cytology sent. Temp 100.5f at admission, pt received hcap coverage 3 days, transitioned to augmentin x 4 days to complete 7 days. Echo w/ moderate aortic stenosis, cardiology consult appreciated, outpt follow up recommended. Case discussed with pulm, cleared for discharge, pt may follow up outpt for the pleural fluid results. Otherwise, pt in no acute distress, vitals stable. f/u as directed. 35 minutes spent in discharge planning Condition: Good - Instructions Diet, Activity, Other Instructions: resume prev diet, activity antibx for 4 more days USE INCENTIVE SPIROMETER 10X/HR WHEN AWAKE f/u as directed Referrals: Jae Mac MD [Staff Physician] - 1 Week Aldo Duke MD [Primary Care Provider] - 1 Week Jm Lozano MD, MD [Staff Physician] - 1 Week Disposition: HOME - Home Medications Comprehensive Discharge Medication List: Ambulatory Orders Aspirin Coated [Ecotrin -] 81 mg PO DAILY 05/07/18 Doxazosin Mesylate 4 mg PO DAILY 05/07/18 Multivitamin [One Daily] 1 each PO DAILY 05/07/18 Amox-Tr/K Cl [Augmentin - 875Mg Tablet] 1 tab PO BID 4 Days #8 tablet 09/21/18
[2018-09-21] MEDS ORDERED: FLU VACCINE QUAD 60 MCG/0.5 ML (MDV 18-19) IM ONE (15:00)
[2018-09-21 15:15] VITALS: BP 130/80; PULSE 96; TEMP 97.6
[2018-09-24 17:15] LABS: GLUCOSE,PLEURAL FLUID 101
[2018-09-24 17:16] LABS: BODY FLUID CREATININE 0.9 mg/dL
--- NOTE | 2018-10-01 11:34 | PATH ---
Cytology Non-Gynecological Report Patient Name: RICH THAO [facility]. Rec. #: [id number] /Age/Gender: 1950 (Age: 68) / M Account: [id number] Location: [address] [place] [address]/[facility] Taken: 09/20/2018 Received: 09/20/2018 Reported: 09/21/2018 Physicians: [place] Sánchez M.D. Specimen(s) Received A: PLEURAL FLUID RECEIVED IN 50% ALCOHOL B: PLEURAL FLUID RECEIVED FRESH Clinical History Pleural effusion Final Diagnosis A & B. PLEURAL FLUID, THORACENTESIS: SATISFACTORY FOR EVALUATION. NO MALIGNANT CELLS IDENTIFIED. MESOTHELIAL CELLS, MACROPHAGES, NEUTROPHILS AND RARE LYMPHOCYTES PRESENT. Electronically Signed Kiah Carvalho M.D. Gross Description A. Approximately 50 cc of yellow fluid received fixed in 50% alcohol. One cytofunnel prepared and Pap stained. One cellblock prepared. B. Approximately 1500 cc of yellow fluid received fresh. One cytofunnel prepared and Pap stained. One cellblock prepared.
== END 2018-09-21 15:01 | disposition home or self-care (01) | DRG 186 ==
LOC: JER 14:27 → JERBED 18:09 → INTOOBSV 18:09 → J5S 21:21 → OBSVTOIN 09-20 13:18
PROVIDERS: ADMIT Internal Medicine; ATTEND Internal Medicine
PROC: 0W993ZX Drainage of Right Pleural Cavity, Percutaneous Approach, Diagnostic (ICD-10-PCS; principal; 2018-09-20)
DX: J90 Pleural effusion, not elsewhere classified (principal); J18.9 Pneumonia, unspecified organism; J98.11 Atelectasis; N40.0 Benign prostatic hyperplasia without lower urinary tract symptoms; Z87.891 Personal history of nicotine dependence; E66.9 Obesity, unspecified; Z68.30 Body mass index [BMI] 30.0-30.9, adult; R03.0 Elevated blood-pressure reading, without diagnosis of hypertension; I35.0 Nonrheumatic aortic (valve) stenosis
CPT/HCPCS: 36415; 71045-TC-FY; 71046-TC-FY; 71250-TC; 71275-TC; 76942; 80048; 80053; 82042; 82150; 82550; 82570; 82945; 83615; 83735; 83880; 84100; 84157; 84311; 84478; 84484; 84560; 85025; 85027; 85610; 85730; 86850; 86900; 86901; 87040; 87070; 87075; 87102; 87116; 87205; 87206; 87210; 87804; 87899; 88108; 88305-TC; 89051; 90688; 93005; 93010; 93306-TC; 94010; 99282-25; G0008; G0378

== ENCOUNTER 2018-11-14 12:00 | Inpatient (IN) | payer OTHER ==
[2018-11-14 08:51] LABS: BASO % 0.6 % (0-2.0); EOS % 0.6 % (0-4.5); HEMATOCRIT 40.8 % (35.4-49); HEMOGLOBIN 14.5 GM/dL (11.7-16.9); LYMPH % 22.6 % (8-40); MCHC 35.4 g/dl (32.0-35.9); MEAN CELL VOLUME 93.2 fl (80-96); MEAN PLT VOLUME 9.2 fl (7.5-11.1); MONO % 7.9 % (3.8-10.2); NEUT % 68.3 % (42.8-82.8); PLATELET COUNT 250 K/MM3 (134-434); RBC 4.38 M/mm3 (4.00-5.60); RDW 14.1 % (11.9-15.9); WHITE BLOOD COUNT 6.8 K/mm3 (4.0-10.0)
[2018-11-14 09:06] LABS: INR 0.99 (0.83-1.09); PROTHROMBIN TIME (PATIENT) 11.7 SEC (9.7-13.0)
[2018-11-14 09:18] LABS: ALBUMIN 3.7 g/dl (3.4-5.0); ALK PHOS 70 U/L (45-117); ANION GAP 6 MMOL/L (8-16); BILIRUBIN,TOTAL 0.7 mg/dL (0.2-1); BLOOD UREA NITROGEN 17 mg/dL (7-18); CALCIUM 8.7 mg/dL (8.5-10.1); CHLORIDE 107 mmol/L (98-107); CO2 27 mmol/L (21-32); CREATININE 0.9 mg/dL (0.55-1.3); GLUCOSE,RANDOM 97 mg/dL (74-106); POTASSIUM 4.4 mmol/L (3.5-5.1); SGOT/AST 21 U/L (15-37); SGPT/ALT 22 U/L (13-61); SODIUM 139 mmol/L (136-145); TOT PROT 7.4 g/dl (6.4-8.2)
--- NOTE | 2018-11-14 11:45 | EKG ---
Test Reason : Blood Pressure : / mmHG Vent. Rate : 077 BPM Atrial Rate : 077 BPM P-R Int : 120 ms QRS Dur : 098 ms QT Int : 390 ms P-R-T Axes : 018 -26 033 degrees QTc Int : 441 ms NORMAL SINUS RHYTHM VOLTAGE CRITERIA FOR LEFT VENTRICULAR HYPERTROPHY ABNORMAL ECG WHEN COMPARED WITH ECG OF 19-SEP-2018 15:07, NO SIGNIFICANT CHANGE WAS FOUND Confirmed by SAVANA MEDINA, NICK ([id number]) on 11/14/2018 11:45:07 AM Referred By: EVERTON WEN Confirmed By:NICK SAWANT MD
[2018-11-20 08:22] VITALS: BMI 30.1
[2018-11-21] MEDS ORDERED: fentaNYL CITRATE 250 MCG/5 ML VIAL ONE (13:59)
[2018-11-21] MEDS ORDERED: PROPOFOL 20 ML ONE ×4 (13:59→15:35)
[2018-11-21] MEDS ORDERED: ROCURONIUM BROMIDE 50 MG/5 ML VIAL ONE ×2 (14:00→14:51)
[2018-11-21] MEDS ORDERED: LIDOCAINE HCL/PF 2% SDV 5ML VIAL ONE (14:00)
[2018-11-21] MEDS ORDERED: SUCCINYLCHOLINE CHLORIDE 200 MG/10 ML VIAL ONE (14:00)
[2018-11-21] MEDS ORDERED: ceFAZolin SODIUM 1 GM VIAL IVPB ONE (14:15)
[2018-11-21] MEDS ORDERED: DESFLURANE GAS 240 ML BOTTLE IH ONE (14:35)
[2018-11-21] MEDS ORDERED: LIDOCAINE 1%/EPI 1:100000 (50 ML MULTI DOSE VIAL) NR ONE (14:49)
[2018-11-21] MEDS ORDERED: BUPIVACAINE HCL/PF 0.5% (5MG/ML) 10 ML VIAL IJ ONE (14:49)
[2018-11-21] MEDS ORDERED: DOXYCYCLINE IVPB ONE (15:00)
[2018-11-21] MEDS ORDERED: SODIUM CHLORIDE IVPB ONE (15:00)
[2018-11-21] MEDS ORDERED: PHENYLEPHRINE HCL 10 MG/1 ML SINGLE DOSE VIAL ONE (15:04)
[2018-11-21] MEDS ORDERED: GLYCOPYRROLATE 0.2 MG/1 ML VIAL ONE (15:24)
[2018-11-21] MEDS ORDERED: NEOSTIGMINE METHYLSULFATE 0.5 MG/ML - 10 ML MDV ONE (15:24)
[2018-11-21] MEDS ORDERED: KETOROLAC TROMETHAMINE 30 MG/1 ML VIAL ONE (15:44)
[2018-11-21] MEDS ORDERED: ONDANSETRON 4 MG/2 ML VIAL IVPUSH PRN ×2 (15:57→20:00)
[2018-11-21] MEDS ORDERED: oxyCODONE HCL 5 MG TABLET PO PRN ×2 (15:57→16:05)
[2018-11-21] MEDS ORDERED: ACETAMINOPHEN 1000 MG/100 ML VIAL (NON FORMULARY) IVPB ONE (16:15)
--- NOTE | 2018-11-21 16:20 | OPR ---
Patient Name: Laurent Curran MR#: [id number] INPATIENT PROCEDURE DATE OF ADMISSION: 11/21/2018 Procedure Date: 03/27/2018 Preoperative Diagnosis: 1. Recurrent idiopathic right pleural effusion; 2. Former smoker; 3. BPH. Postoperative Diagnosis: Same. Procedure: 1. Flexible bronchoscopy; 2. Right VATS; 3. Pleural biopsy; 4. Pleur-x placement; 5. Intercostal nerve block. Indication: as above Surgeon(s): Dr. Juno Silverman. Anesthesia: General Endotracheal Wound Classification: Clean Antibiotic Prophylaxis: Cefazolin Findings: 1. Bronchoscopy: no lesions; fishmouth lower lobe, easy to pass scope. 2. Thoracoscopy: injected pleura, no lesions, lower lobe slightly trapped but opened pretty well; 1550cc of serous fluid removed. Specimens Sent: pleural biopsies. Complications: none Drains / Tubes / Catheters: 1 chest tube Hardware / Implants: n/a Blood / Fluid Losses: minimal Blood / Fluids Administered: per anesthesia Post-Operative Condition: stable, extubated to PACU Indications: This patient is a 68 year-old male former smoker referred by Dr. Estrada after recurrent effusions. He was explained the risks, benefits, and alternatives of a bronchoscopy, pleural biopsy, pleur-x placement, and agreed and understood. Details of Procedure: The patient was taken into the operating room and placed supine on the table. He was monitored with pulse oximetry and blood pressure monitoring. He was given sedation and a double-lumen tube was placed. A bronchoscopy was performed to view the airway. Lung isolation was achieved. He was then positioned in the left lateral decubitus position and lung isolation was confirmed. The chest was prepared and draped in sterile fashion. We placed a port and visualized the pleura after removing 1500cc. We then biopsied the injected pleura. We sent it to pathology. We then obtained hemostasis. We placed a pleur-x after anesthetizing the tunnel and secured it. We did do a 3 space intercostal block as well. The lung was expanded again. It opened adequately. Wounds were closed with absorbable sutures after expanding the lung. Sterile dressings were placed. The patient was then awakened and extubated. He tolerated the procedure well and was taken to the recovery room. I was present postoperatively and after discharge he will follow up with me as an outpatient.
--- NOTE | 2018-11-21 16:28 | OP ---
Operative Note - Note: Operative Date: 11/21/18 Pre-Operative Diagnosis: right pleural effusion Operation: right VATS, pleural biopsy, driange of pleural effusion, pleur-x catheter placment, nerve block Surgeon: Juno Silverman Drum Barker Operator: Jimena Gonzalez Anesthesiologist/COMPOSITE ASSEMBLER: Ailyn Serrato Anesthesia: General Estimated Blood Loss (mls): 25 Drains, Volume Out (mls): 1,550 (serous pleural fluid) Fluid Volume Replaced (mls): 800 Operative Report Dictated: Yes
[2018-11-21] MEDS ORDERED: HYDROmorphone HCl 2 MG/ML VIAL IVPUSH ONE (16:30)
[2018-11-21] MEDS ORDERED: LACTATED RINGERS SOLUTION 1,000 ML IV SCH (16:30)
--- NOTE | 2018-11-21 16:32 | SURG ---
Surgery Sand Tester Note Sand Tester: Jimena Gonzalez PA-C Date of Service: 11/21/18 Diagnosis: recurrent right pleural effusion Procedure: right Vats, pleural biopsy, drainage of pleural effusion, nerve block and pleur- x catheter placment I was present for the entirety of the operative procedure. For further detail, please refer to operative report. Visit type - Case Type Case Type: Scheduled - Emergency Emergency Visit: No - New patient This patient is new to me today: Yes Date on this admission: 11/21/18
[2018-11-21] MEDS ORDERED: LACTATED RINGERS SOLUTION 1,000 ML/1,000 ML INFUS.BAG IV SCH (16:45)
[2018-11-21] MEDS: CEFAZOLIN 1 GM/D5W 1 GM/50 ML BAG IVPB SCH (20:13)
[2018-11-21] MEDS ORDERED: DOXAZOSIN MESYLATE 4 MG TABLET PO SCH (22:00)
[2018-11-22] MEDS: ACETAMINOPHEN 325 MG TABLET (FP) PO SCH ×3 (00:36→11:46)
[2018-11-22] MEDS: CEFAZOLIN 1 GM/D5W 1 GM/50 ML BAG IVPB SCH (03:34)
[2018-11-22 06:56] LABS: BASO % 0.5 % (0-2.0); EOS % 0.6 % (0-4.5); HEMATOCRIT 38.6 % (35.4-49); HEMOGLOBIN 12.7 GM/dL (11.7-16.9); LYMPH % 18.6 % (8-40); MCH 31.1 pg (25.7-33.7); MCHC 32.8 g/dl (32.0-35.9); MEAN CELL VOLUME 94.6 fl (80-96); MEAN PLT VOLUME 8.7 fl (7.5-11.1); MONO % 8.5 % (3.8-10.2); NEUT % 71.8 % (42.8-82.8); PLATELET COUNT 209 K/MM3 (134-434); RBC 4.08 M/mm3 (4.00-5.60); RDW 13.7 % (11.9-15.9); WHITE BLOOD COUNT 6.9 K/mm3 (4.0-10.0)
[2018-11-22 07:25] LABS: ANION GAP 6 MMOL/L (8-16); BLOOD UREA NITROGEN 18 mg/dL (7-18); CALCIUM 8.5 mg/dL (8.5-10.1); CHLORIDE 108 mmol/L (98-107); CO2 25 mmol/L (21-32); CREATININE 0.9 mg/dL (0.55-1.3); GLUCOSE,RANDOM 99 mg/dL (74-106); POTASSIUM 3.9 mmol/L (3.5-5.1); SODIUM 138 mmol/L (136-145)
--- NOTE | 2018-11-22 08:13 | PN ---
Progress Note (short form) - Note Progress Note: Anesthesia post op Pt seen and examined S:Alert and awake O: Vital Signs Temperature 98.1 F 11/22/18 06:00 Pulse Rate 84 11/22/18 06:00 Respiratory Rate 20 11/22/18 06:00 Blood Pressure 119/73 11/22/18 06:00 O2 Sat by Pulse Oximetry (%) 100 11/21/18 17:30 CBC, BMP 11/22/18 06:00 11/22/18 06:00 A/P: s/p: Right VATS Doing well post op Continue current care Moe Stoner M.D.
--- NOTE | 2018-11-22 09:08 | PN ---
Progress Note (short form) - Note Progress Note: 68yo M s/p VATS and Rt pleurex catheter placement, POD 1 seen at bedside. Pt breathing comfortably. Complains of mild Right side chest pain. Denies fever, chills, n/v. Last Vital Signs Temp Pulse Resp BP Pulse Ox 98.1 F 84 20 119/73 100 11/22/18 06:00 11/22/18 06:00 11/22/18 06:00 11/22/18 06:00 11/21/18 17:30 CBC, BMP 11/22/18 06:00 11/22/18 06:00 PE: Gen: A&O x3 Resp: breathing comfortably Chest: Pleurex catheter in place Right chest, serosanguinous drainage. Output: 290ml Problem List - Problems (1) Pleural effusion Assessment/Plan: Plan -pt appears stable, will cap pleurex and discharge home with a couple pleurex bottles. -pt will follow with Dr. Silverman as outpatient, discharge info in discharge plan. Pt seen and discussed with Dr. Silverman who agrees with plan Code(s): J90 - PLEURAL EFFUSION, NOT ELSEWHERE CLASSIFIED
[2018-11-22] MEDS ORDERED: PT OWN MED DRAWER 7, Y5N ONE (09:15)
[2018-11-22] MEDS ORDERED: HEPARIN NA (PORCINE) 5,000 UNITS/ML 1ML VIAL SQ SCH (10:00)
[2018-11-22] MEDS ORDERED: ENOXAPARIN NA (PORCINE) 40 MG/0.4 ML DISP.SYRIN SQ SCH (10:00)
[2018-11-22 14:43] VITALS: BP 148/87; PULSE 95; TEMP 98.3
--- NOTE | 2018-11-27 14:34 | PN ---
Progress Note (short form) - Note Progress Note: Thoracic: Pt has bibasilar atelectasis and need incentive spirometry to expand.
--- NOTE | 2018-12-03 17:26 | PATH ---
Surgical Pathology Report Patient Name: RICH THAO Med. Rec. #: [id number] /Age/Gender: 1950 (Age: 68) / M Account: [id number] Location: [facility] MED/SURG Taken: 11/21/2018 Received: 11/21/2018 Reported: 12/03/2018 Physicians: Juno Silverman M.D. Specimen(s) Received A: FROZEN SECTION B: TISSUE OF RIGHT PLEURA Clinical History Pleural effusion Final Diagnosis RIGHT PLEURA, BIOPSY: - REACTIVE LYMPHOID PROLIFERATION OF ADMIXED B CELLS AND T CELL FORMING ALSO PRIMARY AND SECONDARY LYMPHOID FOLLICLES, WITHOUT EVIDENCE OF LYMPHOMA INVOLVEMENT. Comment: Sections show fibroadipose tissue with scattered but moderate amount of small lymphocytic infiltrate, especially in the perivascular region. There are also reactive lymphoid follicles identified. No obvious infiltrative or large cell transformation noted from this lymphoid infiltrate. IHC study demonstrated that this lymphocytic infiltrate is admixed B cells and T cells with also primary and secondary lymphoid follicles formed. Preserved and adequate follicular dendritic meshwork is demonstrated by CD23 stain. Scattered polytypic plasma cells are also noted. The overall histologic and immunophenotypic findings do not show evidence of lymphoma involvement. LYMPHOPROLIFERATIVE FLOW PANEL performed and interpreted at [facility], [place], [place] ([id number]) shows the following: INTERPRETATION: Limited sample; clonal B-cell populations are not detected. COMMENT: Correlation with complete morphologic assessment of the sample is essential. See [facility] (Specimen #: [id number]) and [facility] report ([id number]) for additional details. Electronically Signed Gaye Thomason M.D. Gross Description A. Received fresh labeled "right pleura tissue," is a 0.3 cm in greatest dimension hurley portion of soft tissue. The specimen is placed in RPMI solution and sent for flow cytometry. B. Received in formalin labeled "right pleura tissue," is a 2.5 x 1.6 x 0.2 cm aggregate of hurley-pink and yellow soft tissue fragments. The specimen is submitted in toto in one cassette. 11/21/2018 saudi11/21/2018
== END 2018-11-22 14:21 | disposition home health service (06) | DRG 167 ==
LOC: JSAMEDAYSX 11-21 05:13 → J8W 11-21 18:16
PROVIDERS: ADMIT Surgery; ATTEND Surgery
PROC: 0BBN4ZX Excision of Right Pleura, Percutaneous Endoscopic Approach, Diagnostic (ICD-10-PCS; 2018-11-21)
PROC: 0BJ08ZZ Inspection of Tracheobronchial Tree, Via Natural or Artificial Opening Endoscopic (ICD-10-PCS; 2018-11-21)
PROC: 0B9N40Z Drainage of Right Pleura with Drainage Device, Percutaneous Endoscopic Approach (ICD-10-PCS; principal; 2018-11-21 13:00)
DX: J90 Pleural effusion, not elsewhere classified (principal); J98.11 Atelectasis; Z87.891 Personal history of nicotine dependence; N40.0 Benign prostatic hyperplasia without lower urinary tract symptoms
CPT/HCPCS: 36415; 71045-TC-FY; 71046-TC-FY; 71250-TC; 80048; 80053; 85025; 85610; 86850; 86900; 86901; 88300-TC; 88305-TC; 93005; 93010; 94760; J0131

== ENCOUNTER 2019-05-15 06:46 | Emergency (ER) | payer OTHER ==
[2019-05-15 07:07] VITALS: BP 170/99; PULSE 89; TEMP 98.5; BMI 30.1
--- NOTE | 2019-05-15 07:20 | PDOC ---
History of Present Illness - General Chief Complaint: Nasal Bleeding Stated Complaint: NOSEBLEED Time Seen by Provider: 05/15/19 07:11 History Source: Patient - History of Present Illness Associated Symptoms: denies: headaches, malaise, weakness Past History - Past Medical History Allergies/Adverse Reactions: Allergies Allergy/AdvReac Type Severity Reaction Status Date / Time No Known Drug Allergies Allergy Verified 05/15/19 07:03 Home Medications: Ambulatory Orders Aspirin Coated [Ecotrin -] 81 mg PO DAILY 05/07/18 Doxazosin Mesylate 4 mg PO HS 05/07/18 Multivitamin [One Daily] 1 each PO DAILY 05/07/18 Oxycodone HCl 5 mg PO Q6H PRN #24 tablet MDD 6 11/21/18 Anemia: No Asthma: No Cancer: No Cardiac Disorders: No CVA: No COPD: No CHF: No Dementia: No Diabetes: No GI Disorders: No Disorders: No HTN: No Hypercholesterolemia: No Liver Disease: No Seizures: No Thyroid Disease: No - Surgical History Cardiac Surgery: No Cholecystectomy: No - Suicide/Smoking/Psychosocial Hx Smoking History: Never smoked Have you smoked in the past 12 months: No If you are a former smoker, when did you quit?: 20yrs Information on smoking cessation initiated: No Hx Alcohol Use: No Drug/Substance Use Hx: No Substance Use Type: None Hx Substance Use Treatment: No Review of Systems - Review of Systems Constitutional: No: Weakness HEENTM: Yes: Nose Bleeding. No: Ear Pain, Throat Pain Respiratory: No: Cough ABD/GI: No: Nausea, Vomiting Neurological: No: Headache, Dizziness *Physical Exam - Vital Signs Last Vital Signs Temp Pulse Resp BP Pulse Ox 98.5 F 89 17 170/99 95 05/15/19 07:01 05/15/19 07:01 05/15/19 07:01 05/15/19 07:01 05/15/19 07:01 - Physical Exam General Appearance: Yes: Appropriately Dressed. No: Apparent Distress HEENT: positive: Normal ENT Inspection, Normal Voice, Pharynx Normal, Other (no active epistaxis, no blood visialized in nares) Neck: positive: Supple Integumentary: positive: Dry, Warm Neurologic: positive: Fully Oriented, Alert, Normal Mood/Affect Medical Decision Making - Medical Decision Making 05/15/19 07:24 68-year-old male, history of BPH, on baby aspirin, here with epistaxis. Patient states yesterday after "gently" blowing nose at work, started bleeding profusely from his right nares that eventually resolved with nasal packing. States last night at home bleeding recurred to right nares, but has since resolved. No bleeding today but came into ED for evaluation. Pt states he wants to know if he has a bleeding vessel that needs cauterization. States he's had similar episode in the past, usually when he blows his nose, but not severe as this episode. No headache or dizziness. Feels well otherwise See exam Epistaxis in setting of blowing nose Since resolved Last time bled was last night On baby asa Stable w/ no active bleed here No intervention needed in ED Pt to refrain from nose blowing, told to apply topical abx or vaseline to nasal mucosa to prevent re-bleed, proper nasal compression demonstrated in ED, Pt declined ENT referral, states his works at [employer] and will help to arrange ENT f/u Reasons to return to ER d/w pt *DC/Admit/Observation/Transfer Diagnosis at time of Disposition: Epistaxis - Discharge Dispostion Disposition: HOME Condition at time of disposition: Good - Referrals - Patient Instructions Printed Discharge Instructions: Nosebleed Additional Instructions: There was no intervention needed in ED today as you are not actively bleeding Refrain from nose blowing, apply bacitracin or vaseline to nasal mucosa 3 times daily for next 3 days If bleeding returns and you are unable to stop it w/ nasal compression as demonstrated to you here, please return to ED You will need to see an ENT specialist for further evaluation - Post Discharge Activity
== END 2019-05-15 07:30 | disposition home or self-care (01) ==
LOC: JER 06:46
DX: R04.0 Epistaxis (principal); N40.0 Benign prostatic hyperplasia without lower urinary tract symptoms; Z79.82 Long term (current) use of aspirin
CPT/HCPCS: 99281-25

== ENCOUNTER 2020-09-16 04:37 | Day surgery (SDC) | payer OTHER ==
[2020-09-10 13:38] VITALS: BMI 31.1
[2020-09-16 08:52] VITALS: TEMP 98.1
[2020-09-16 09:45] VITALS: BP 141/83; PULSE 74
--- NOTE | 2020-09-17 16:56 | PATH ---
Surgical Pathology Report Patient Name: RICH THAO [facility]. Rec. #: [id number] /Age/Gender: 1950 (Age: 70) / M Account: [id number] Location: [facility] Taken: 09/16/2020 Received: 09/16/2020 Reported: 09/17/2020 Physicians: Prabhjot Dowd M.D. Specimen(s) Received A: SECOND PORTION DUODENUM AND DUODENAL BULB B: ANTRUM C: GE JUNCTION D: SIGMOID POLYP E: MID ESOPHAGUS F: TRANSVERSE COLON POLYP G: RIGHT COLON POLYP H: RECTAL POLYP Clinical History Abdominal pain, colon cancer screening Final Diagnosis A. DUODENUM, SECOND PORTION AND DUODENAL BULB, BIOPSY: DUODENAL MUCOSA WITHOUT SIGNIFICANT PATHOLOGIC FINDINGS. B. STOMACH, ANTRUM, BIOPSY: GASTRIC ANTRAL MUCOSA WITH MILD CHRONIC GASTRITIS. IMMUNOHISTOCHEMICAL STAIN FOR H. PYLORI IS NEGATIVE. C. GE JUNCTION, BIOPSY: SQUAMOCOLUMNAR MUCOSA WITH MILD ACUTE AND CHRONIC INFLAMMATION AND CHANGES OF MODERATE REFLUX ESOPHAGITIS. NO INTESTINAL METAPLASIA OR DYSPLASIA IDENTIFIED. D. SIGMOID COLON, POLYP, BIOPSY: HYPERPLASTIC POLYP. E. MID ESOPHAGUS, BIOPSY: SQUAMOUS AND SCANT COLUMNAR MUCOSA WITH CHANGES OF MILD REFLUX ESOPHAGITIS. NO INTESTINAL METAPLASIA OR DYSPLASIA IDENTIFIED. F. TRANSVERSE COLON, POLYP, POLYPECTOMY: TUBULAR ADENOMA(S). G. COLON, RIGHT, POLYP, BIOPSY: TUBULAR ADENOMA. H. RECTAL POLYP, BIOPSY: HYPERPLASTIC POLYP. Positive and negative controls (internal if applicable) show appropriate results. Electronically Signed Kiah Carvalho M.D. Gross Description A. Received in formalin, labeled "second portion duodenum and duodenal bulb" are 3 hurley-pink, irregular soft tissue measuring 0.3 cm each in greatest dimension. The specimens are submitted in toto in one cassette. B. Received in formalin, labeled "antrum" are 4 hurley-pink, irregular soft tissue measuring 0.1-0.3 cm each in greatest dimension. The specimens are submitted in toto in one cassette. C. Received in formalin, labeled "GE junction" are 3 hurley-pink, irregular soft tissue measuring 0.2-0.3 cm in greatest dimension. The specimens are submitted in toto in one cassette. D. Received in formalin, labeled "sigmoid biopsy" is one hurley-pink, irregular soft tissue measuring 0.4 cm in greatest dimension. The specimens are submitted in toto in one cassette. E. Received in formalin, labeled "mid esophagus" are 2 hurley-pink, irregular soft tissue measuring 0.1-0.3 cm in greatest dimension. The specimens are submitted in toto in one cassette. F. Received in formalin, labeled "transverse colon polyp" are 4 hurley-pink, irregular soft tissue measuring 0.2 to 0.4 cm in greatest dimension. The base of the largest tissue is inked. The specimens are submitted in toto in one cassette. G. Received in formalin, labeled "right colon polyp" are 3 hurley-pink, irregular soft tissue measuring 0.1-0.3 cm in greatest dimension. The specimens are submitted in toto in one cassette. H. Received in formalin, labeled "rectal polyp" are 2 hurley-pink, irregular soft tissue measuring 0.3-0.4 cm in greatest dimension. The specimens are submitted in toto in one cassette. 09/16/2020 [facility]09/16/2020
== END 2020-09-16 09:48 | disposition home or self-care (01) ==
LOC: JASU-ENDO 04:37
PROVIDERS: ATTEND Internal Medicine Gastroenterology
PROC: 0DBK8ZX Excision of Ascending Colon, Via Natural or Artificial Opening Endoscopic, Diagnostic (ICD-10-PCS; 2020-09-16)
PROC: 0DBN8ZX Excision of Sigmoid Colon, Via Natural or Artificial Opening Endoscopic, Diagnostic (ICD-10-PCS; 2020-09-16)
PROC: 0DBP8ZX Excision of Rectum, Via Natural or Artificial Opening Endoscopic, Diagnostic (ICD-10-PCS; 2020-09-16)
PROC: 0DB98ZX Excision of Duodenum, Via Natural or Artificial Opening Endoscopic, Diagnostic (ICD-10-PCS; 2020-09-16)
PROC: 0DB68ZX Excision of Stomach, Via Natural or Artificial Opening Endoscopic, Diagnostic (ICD-10-PCS; 2020-09-16)
PROC: 0DB28ZX Excision of Middle Esophagus, Via Natural or Artificial Opening Endoscopic, Diagnostic (ICD-10-PCS; 2020-09-16)
PROC: 0DB38ZX Excision of Lower Esophagus, Via Natural or Artificial Opening Endoscopic, Diagnostic (ICD-10-PCS; 2020-09-16)
PROC: 0DBL8ZX Excision of Transverse Colon, Via Natural or Artificial Opening Endoscopic, Diagnostic (ICD-10-PCS; principal; 2020-09-16 08:00)
DX: Z12.11 Encounter for screening for malignant neoplasm of colon (principal); Z86.010 Personal history of colon polyps; D12.2 Benign neoplasm of ascending colon; D12.5 Benign neoplasm of sigmoid colon; D12.3 Benign neoplasm of transverse colon; K62.1 Rectal polyp; K57.30 Diverticulosis of large intestine without perforation or abscess without bleeding; K64.8 Other hemorrhoids; K21.00 Gastro-esophageal reflux disease with esophagitis, without bleeding; K44.9 Diaphragmatic hernia without obstruction or gangrene; I10 Essential (primary) hypertension
CPT/HCPCS: 88305-TC; 88342-TC

== ENCOUNTER 2020-12-30 07:51 | Inpatient (IN) | payer OTHER ==
[2020-12-30] MEDS ORDERED: PANTOPRAZOLE SODIUM 40 MG in SODIUM CHLORIDE 100 ML IVPB ONE (07:59)
[2020-12-30] MEDS ORDERED: PANTOPRAZOLE SODIUM 40 MG VIAL ONE (08:09)
[2020-12-30 08:39] LABS: INR 1.13 (0.82-1.09); PROTHROMBIN TIME (PATIENT) 12.5 SEC (10.2-13.0)
[2020-12-30 08:51] LABS: ALBUMIN 3.8 g/dl (3.4-5.0); BILIRUBIN,TOTAL 0.7 mg/dl (0.2-1); CALCIUM 8.5 mg/dl (8.5-10); CREATININE 1.1 mg/dl (0.55-1.3); POTASSIUM 3.7 mmol/L (3.5-5.1); TOT PROT 6.2 g/dl (6.4-8.2)
[2020-12-30] MEDS ORDERED: PRESCRIPTION PAD 1 EACH EACH NR ONE (11:17)
[2020-12-30 11:46] LABS: BASO % 0.8 % (0-2.0); EOS % 0.9 % (0-4.5); HEMATOCRIT 27.9 % (35.4-49); HEMOGLOBIN 9.6 GM/dL (11.7-16.9); LYMPH % 26.5 % (8-40); MCH 33.3 pg (25.7-33.7); MCHC 34.6 g/dl (32.0-35.9); MEAN CELL VOLUME 96.2 fl (80-96); MEAN PLT VOLUME 8.9 fl (7.5-11.1); MONO % 7.6 % (3.8-10.2); NEUT % 64.2 % (42.8-82.8); PLATELET COUNT 192 K/MM3 (134-434); RDW 13.2 % (11.9-15.9); WHITE BLOOD COUNT 6.4 K/mm3 (4.0-10.0)
[2020-12-30] MEDS: DEXTROSE 5%-NORMAL SALINE 1,000 ML IV SCH (14:17)
[2020-12-30] MEDS ORDERED: PANTOPRAZOLE 40 MG TABLET ONE (22:11)
[2020-12-30] MEDS ORDERED: LISINOPRIL 5 MG TABLET ONE (22:12)
[2020-12-30] MEDS: PANTOPRAZOLE 40 MG TABLET PO SCH (22:14)
[2020-12-30] MEDS: LISINOPRIL 20 MG TABLET PO SCH (22:14)
[2020-12-30] MEDS: DOXAZOSIN MESYLATE 4 MG TABLET PO SCH (22:19)
[2020-12-31] MEDS ORDERED: METOPROLOL TARTRATE 5 MG/5 ML VIAL IVPUSH ONE (00:15)
[2020-12-31] MEDS: DEXTROSE 5%-NORMAL SALINE 1,000 ML IV SCH ×2 (00:36→13:23)
[2020-12-31 01:48] VITALS: BMI 40.8
[2020-12-31 07:59] LABS: BASO % 0.6 % (0-2.0); EOS % 1.2 % (0-4.5); HEMATOCRIT 24.1 % (35.4-49); HEMOGLOBIN 8.3 GM/dL (11.7-16.9); LYMPH % 27.1 % (8-40); MCH 33.1 pg (25.7-33.7); MCHC 34.5 g/dl (32.0-35.9); MEAN CELL VOLUME 96.1 fl (80-96); MEAN PLT VOLUME 9.2 fl (7.5-11.1); MONO % 8.3 % (3.8-10.2); NEUT % 62.8 % (42.8-82.8); PLATELET COUNT 162 K/MM3 (134-434); POTASSIUM 3.8 mmol/L (3.5-5.1); RDW 13.6 % (11.9-15.9); WHITE BLOOD COUNT 4.7 K/mm3 (4.0-10.0)
[2020-12-31 08:01] LABS: ALBUMIN 3.1 g/dl (3.4-5.0); CALCIUM 7.9 mg/dL (8.5-10.1)
[2020-12-31 08:02] LABS: BLOOD UREA NITROGEN 13.7 mg/dL (7-18); MAGNESIUM 2.2 mg/dL (1.8-2.4)
[2020-12-31 08:06] LABS: BILIRUBIN,TOTAL 0.7 mg/dL (0.2-1); TOT PROT 5.4 g/dl (6.4-8.2)
[2020-12-31 08:11] LABS: CREATININE 0.9 mg/dL (0.55-1.3)
[2020-12-31] MEDS: DOXAZOSIN MESYLATE 4 MG TABLET PO SCH (21:12)
[2020-12-31] MEDS: PANTOPRAZOLE 40 MG TABLET PO SCH (21:13)
[2020-12-31] MEDS: LISINOPRIL 20 MG TABLET PO SCH (21:15)
[2021-01-01 06:47] VITALS: TEMP 97.1
[2021-01-01 08:03] LABS: BASO % 0.7 % (0-2.0); EOS % 1.5 % (0-4.5); HEMATOCRIT 23.6 % (35.4-49); HEMOGLOBIN 8.3 GM/dL (11.7-16.9); LYMPH % 26.4 % (8-40); MCH 33.6 pg (25.7-33.7); MEAN CELL VOLUME 95.9 fl (80-96); MEAN PLT VOLUME 9.2 fl (7.5-11.1); MONO % 8.5 % (3.8-10.2); NEUT % 62.9 % (42.8-82.8); PLATELET COUNT 162 K/MM3 (134-434); RBC 2.46 M/mm3 (4.00-5.60); RDW 13.8 % (11.9-15.9); WHITE BLOOD COUNT 5.3 K/mm3 (4.0-10.0)
[2021-01-01 10:22] LABS: POTASSIUM 4.2 mmol/L (3.5-5.1)
[2021-01-01 10:25] LABS: CALCIUM 8.3 mg/dL (8.5-10.1)
[2021-01-01 10:26] LABS: ALBUMIN 3.3 g/dl (3.4-5.0); BLOOD UREA NITROGEN 16.9 mg/dL (7-18); MAGNESIUM 2.2 mg/dL (1.8-2.4)
[2021-01-01 10:29] LABS: CREATININE 1.1 mg/dL (0.55-1.3)
[2021-01-01 10:31] LABS: BILIRUBIN,TOTAL 0.4 mg/dL (0.2-1); TOT PROT 5.9 g/dl (6.4-8.2)
[2021-01-01] MEDS ORDERED: IRON SUCROSE INJECTION 200 MG in SODIUM CHLORIDE 90 ML IVPB ONE (14:10)
[2021-01-01] MEDS ORDERED: metoPROLOL SUCCINATE 25 MG TAB.SR.24H (FP) PO SCH (14:15)
[2021-01-01] MEDS ORDERED: PNEUMOC 13-VAL CONJ-DIP CRM/PF 0.5 ML DISP.SYRIN IM ONE (15:20)
[2021-01-01 15:21] VITALS: BP 118/63; PULSE 75
[2021-01-01] MEDS ORDERED: APIXABAN 5 MG TABLET PO SCH (22:00)
== END 2021-01-01 17:37 | disposition home or self-care (01) | DRG 381 ==
LOC: FER 07:51 → J4W 23:30
PROVIDERS: ADMIT Internal Medicine; ATTEND Nurse Practitioner Family
PROC: 0DJ08ZZ Inspection of Upper Intestinal Tract, Via Natural or Artificial Opening Endoscopic (ICD-10-PCS; principal; 2020-12-31 12:00)
DX: K22.11 Ulcer of esophagus with bleeding (principal); D62 Acute posthemorrhagic anemia; Z95.2 Presence of prosthetic heart valve; I10 Essential (primary) hypertension; N40.0 Benign prostatic hyperplasia without lower urinary tract symptoms; I48.0 Paroxysmal atrial fibrillation; K21.9 Gastro-esophageal reflux disease without esophagitis; K63.5 Polyp of colon
CPT/HCPCS: 36415; 71045-TC-FY; 80053; 82272; 82550; 83735; 84484; 85025; 85610; 86850; 86900; 86901; 90670; 93005; 93010; 99285-25; C9803; J1756; U0003

== ENCOUNTER 2022-11-26 05:00 | Inpatient (IN) | payer OTHER ==
[2022-11-26 05:08] VITALS: BMI 31.5
[2022-11-26] MEDS ORDERED: LIDOCAINE HCL 2% JELLY 6 ML TP ONE (05:11)
[2022-11-26] MEDS ORDERED: SODIUM CHLORIDE 0.9% 500 ML INFUS.BAG IV ONE (05:40)
[2022-11-26 06:16] LABS: BASO % 0.3 % (0-2.0); HEMATOCRIT 40.8 % (35.4-49); LYMPH % 3.9 % (8-40); MCH 32.1 pg (25.7-33.7); MCHC 34.2 g/dl (32.0-35.9); MEAN CELL VOLUME 93.7 fl (80-96); NEUT % 88.8 % (42.8-82.8); PLATELET COUNT 176 10^3/uL (134-434); RBC 4.35 M/mm3 (4.00-5.60); RDW 13.5 % (11.9-15.9); WHITE BLOOD COUNT 15.5 K/mm3 (4.0-10.0)
[2022-11-26 06:19] LABS: EPI CELLS 2 /uL (0-25.1); HYALINE CASTS 0 /uL (0-3.1); PH,URINE 5.5 (5.0-8.0); URINE APPEARANCE CLEAR; URINE BACTERIA 10 /uL (0-1359); URINE BILIRUBIN NEGATIVE (NEGATIVE); URINE COLOR YELLOW; URINE GLUCOSE (UA) NEGATIVE (NEGATIVE); URINE KETONE NEGATIVE (NEGATIVE); URINE LEUK ESTERASE NEGATIVE (NEGATIVE); URINE NITRITE NEGATIVE (NEGATIVE); URINE PROTEIN NEGATIVE (NEGATIVE); URINE RBC 177 /uL (0-23.9); URINE UROBILINOGEN 0.2 mg/dL (0.2-1.0); URINE WBC 12 /uL (0-25.8)
[2022-11-26] MEDS ORDERED: SULFAMETHOXAZOLE/TRIMETHOPRIM 800MG/160MG D.S. TABLET PO ONE (06:23)
[2022-11-26] MEDS ORDERED: SULFAMETHOXAZOLE/TRIMETHOPRIM 800MG/160MG D.S. TABLET ONE (06:25)
[2022-11-26] MEDS ORDERED: LACTATED RINGERS SOLUTION 1000 ML INFUS.BAG IV ONE (06:33)
[2022-11-26 06:39] LABS: CALCIUM 9.5 mg/dL (8.5-10.1)
[2022-11-26 06:40] LABS: ALBUMIN 4.1 g/dl (3.4-5.0); BLOOD UREA NITROGEN 37.2 mg/dL (7-18)
[2022-11-26 06:43] LABS: CREATININE 3.4 mg/dL (0.55-1.3)
[2022-11-26] MEDS ORDERED: ACETAMINOPHEN 1000 MG/100 ML BAG IVPB ONE (06:43)
[2022-11-26 06:44] LABS: TOT PROT 7.4 g/dl (6.4-8.2)
[2022-11-26 06:45] LABS: BILIRUBIN,TOTAL 1.3 mg/dL (0.2-1)
[2022-11-26] MEDS ORDERED: ACETAMINOPHEN INJECTION 100 ML IVPB ONE (06:46)
[2022-11-26 11:45] VITALS: RESP 18
[2022-11-26] MEDS ORDERED: LACTATED RINGERS SOLUTION 1,000 ML/1,000 ML INFUS.BAG IV SCH (12:15)
[2022-11-26] MEDS ORDERED: metoPROLOL SUCCINATE 25 MG TAB.SR.24H (FP) PO ONE (12:35)
[2022-11-26] MEDS: metoPROLOL SUCCINATE 25 MG TAB.SR.24H (FP) PO SCH (12:38)
[2022-11-26] MEDS ORDERED: CEFEPIME 1 GM/100 ML BAG IVPB ONE (12:41)
[2022-11-26] MEDS: CEFTRIAXONE 1 GM in DEXTROSE 5%-WATER - 50 ML IVPB SCH (12:50)
[2022-11-26] MEDS ORDERED: PNEUMOC 20-VAL CONJ-DIP CRM/PF 0.5 ML SYRINGE IM ONE (12:55)
[2022-11-26] MEDS ORDERED: PNEUMOCOCCAL 23 VACCINE 0.5 ML VIAL IM ONE (14:00)
[2022-11-26] MEDS: APIXABAN 5 MG TABLET PO SCH (21:55)
[2022-11-26] MEDS: ATORVASTATIN CA 40 MG TABLET (FP) PO SCH (21:55)
[2022-11-26] MEDS ORDERED: HEPARIN NA (PORCINE) 5,000 UNITS/ML 1ML VIAL SQ SCH (22:00)
[2022-11-27] MEDS: TAMSULOSIN HCL 0.4 MG CAP PO SCH (08:09)
[2022-11-27] MEDS ORDERED: ACETAMINOPHEN 500 MG TABLET (FP) PO PRN (08:09)
[2022-11-27] MEDS: metoPROLOL SUCCINATE 25 MG TAB.SR.24H (FP) PO SCH (09:01)
[2022-11-27] MEDS: CEFTRIAXONE 1 GM in DEXTROSE 5%-WATER - 50 ML IVPB SCH (09:01)
[2022-11-27] MEDS: APIXABAN 5 MG TABLET PO SCH ×2 (09:01→22:25)
[2022-11-27 09:49] LABS: BASO % 0.6 % (0-2.0); EOS % 1.8 % (0-4.5); HEMATOCRIT 37.7 % (35.4-49); HEMOGLOBIN 12.9 GM/dL (11.7-16.9); LYMPH % 13.8 % (8-40); MCH 32.2 pg (25.7-33.7); MCHC 34.1 g/dl (32.0-35.9); MEAN CELL VOLUME 94.3 fl (80-96); MEAN PLT VOLUME 9.1 fl (7.5-11.1); MONO % 6.3 % (3.8-10.2); NEUT % 77.5 % (42.8-82.8); PLATELET COUNT 173 10^3/uL (134-434); RDW 13.7 % (11.9-15.9); WHITE BLOOD COUNT 10.2 K/mm3 (4.0-10.0)
[2022-11-27 10:01] LABS: INR 1.74 (0.83-1.09); PROTHROMBIN TIME (PATIENT) 20.1 SEC (9.7-13.0)
[2022-11-27 10:02] LABS: ACTIVATED PTT 32.7 SECONDS (25.2-36.5)
[2022-11-27 10:23] LABS: TOT PROT 6.3 g/dl (6.4-8.2)
[2022-11-27 10:26] LABS: BLOOD UREA NITROGEN 23.3 mg/dL (7-18)
[2022-11-27 10:27] LABS: CALCIUM 8.5 mg/dL (8.5-10.1); MAGNESIUM 1.8 mg/dL (1.8-2.4)
[2022-11-27 10:28] LABS: CREATININE 1.4 mg/dL (0.55-1.3)
[2022-11-27 10:29] LABS: PHOSPHOROUS 2.5 mg/dL (2.5-4.9)
[2022-11-27 10:30] LABS: BILIRUBIN,TOTAL 1.3 mg/dL (0.2-1)
[2022-11-27 10:34] LABS: ALBUMIN 3.1 g/dl (3.4-5.0); N-TERMINAL BNP 2555.1 pg/ml (5-125)
[2022-11-27] MEDS: POLYETHYLENE GLYCOL (HEALTHYLAX) 3350 17 GM PACKET PO SCH (12:34)
[2022-11-27] MEDS: ATORVASTATIN CA 40 MG TABLET (FP) PO SCH (22:25)
[2022-11-27] MEDS: SENNOSIDES 8.6MG TABLET (FP) PO SCH (22:25)
[2022-11-28] MEDS: TAMSULOSIN HCL 0.4 MG CAP PO SCH (07:55)
[2022-11-28] MEDS: metoPROLOL SUCCINATE 25 MG TAB.SR.24H (FP) PO SCH (10:17)
[2022-11-28] MEDS: APIXABAN 5 MG TABLET PO SCH ×2 (10:17→22:36)
[2022-11-28] MEDS: POLYETHYLENE GLYCOL (HEALTHYLAX) 3350 17 GM PACKET PO SCH (10:17)
[2022-11-28] MEDS: CEFTRIAXONE 1 GM in DEXTROSE 5%-WATER - 50 ML IVPB SCH (10:17)
[2022-11-28 10:32] LABS: BASO % 0.8 % (0-2.0); EOS % 3.9 % (0-4.5); HEMATOCRIT 36.4 % (35.4-49); HEMOGLOBIN 12.4 GM/dL (11.7-16.9); LYMPH % 19.9 % (8-40); MCH 32.3 pg (25.7-33.7); MEAN CELL VOLUME 94.7 fl (80-96); MEAN PLT VOLUME 8.6 fl (7.5-11.1); MONO % 8.5 % (3.8-10.2); NEUT % 66.9 % (42.8-82.8); PLATELET COUNT 162 10^3/uL (134-434); RBC 3.85 M/mm3 (4.00-5.60); RDW 13.7 % (11.9-15.9); WHITE BLOOD COUNT 6.9 K/mm3 (4.0-10.0)
[2022-11-28 10:51] LABS: CALCIUM 8.6 mg/dL (8.5-10.1)
[2022-11-28 10:52] LABS: BLOOD UREA NITROGEN 21.2 mg/dL (7-18)
[2022-11-28 10:55] LABS: PHOSPHOROUS 2.6 mg/dL (2.5-4.9)
[2022-11-28 10:56] LABS: CREATININE 1.2 mg/dL (0.55-1.3)
[2022-11-28] MEDS: ATORVASTATIN CA 40 MG TABLET (FP) PO SCH (22:36)
[2022-11-28] MEDS: SENNOSIDES 8.6MG TABLET (FP) PO SCH (22:36)
[2022-11-29] MEDS: TAMSULOSIN HCL 0.4 MG CAP PO SCH (08:31)
[2022-11-29] MEDS: APIXABAN 5 MG TABLET PO SCH (09:54)
[2022-11-29] MEDS: CEFTRIAXONE 1 GM in DEXTROSE 5%-WATER - 50 ML IVPB SCH (09:54)
[2022-11-29] MEDS: POLYETHYLENE GLYCOL (HEALTHYLAX) 3350 17 GM PACKET PO SCH (09:54)
[2022-11-29] MEDS: metoPROLOL SUCCINATE 25 MG TAB.SR.24H (FP) PO SCH (09:54)
[2022-11-29 10:02] LABS: BASO % 0.8 % (0-2.0); EOS % 4.1 % (0-4.5); HEMOGLOBIN 12.9 GM/dL (11.7-16.9); MCH 32.1 pg (25.7-33.7); MCHC 34.1 g/dl (32.0-35.9); MEAN CELL VOLUME 94.2 fl (80-96); MEAN PLT VOLUME 9.1 fl (7.5-11.1); MONO % 8.1 % (3.8-10.2); PLATELET COUNT 198 10^3/uL (134-434); RBC 4.03 M/mm3 (4.00-5.60); RDW 13.3 % (11.9-15.9)
[2022-11-29 10:17] LABS: ALBUMIN 3.2 g/dl (3.4-5.0); BLOOD UREA NITROGEN 17.2 mg/dL (7-18); MAGNESIUM 1.9 mg/dL (1.8-2.4)
[2022-11-29 10:20] LABS: PHOSPHOROUS 2.9 mg/dL (2.5-4.9)
[2022-11-29 10:21] LABS: TOT PROT 6.5 g/dl (6.4-8.2)
[2022-11-29 10:22] LABS: BILIRUBIN,TOTAL 0.8 mg/dL (0.2-1)
[2022-11-29 12:34] VITALS: BP 164/81; PULSE 71; TEMP 98.1
== END 2022-11-29 13:05 | disposition home health service (06) | DRG 726 ==
LOC: JER 05:00 → JERBED 06:54 → J6S 16:50
PROVIDERS: ADMIT Internal Medicine
DX: N40.1 Benign prostatic hyperplasia with lower urinary tract symptoms (principal); N17.9 Acute kidney failure, unspecified; N13.6 Pyonephrosis; N12 Tubulo-interstitial nephritis, not specified as acute or chronic; R33.8 Other retention of urine; Z95.2 Presence of prosthetic heart valve; D72.829 Elevated white blood cell count, unspecified; N30.90 Cystitis, unspecified without hematuria; K21.9 Gastro-esophageal reflux disease without esophagitis
CPT/HCPCS: 0241U-QW; 36415; 74176-TC; 80048; 80053; 81003; 82436; 82570; 83735; 83880; 83935; 84100; 84133; 84300; 85025; 85610; 85730; 87086; 93005; 93010; 93306-TC; 99285-25

== ENCOUNTER 2022-12-03 14:59 | Emergency (ER) | payer OTHER ==
[2022-12-03 15:36] VITALS: TEMP 98.6; BMI 31.5
[2022-12-03] MEDS ORDERED: LIDOCAINE HCL 2% JELLY 10 ML CARTRIDGE UR ONE (16:07)
[2022-12-03] MEDS ORDERED: LIDOCAINE HCL 2% JELLY 6 ML TP ONE (16:09)
[2022-12-03 17:38] VITALS: BP 138/82; PULSE 74; RESP 16
== END 2022-12-03 17:45 | disposition home or self-care (01) ==
LOC: JER 14:59
DX: R33.9 Retention of urine, unspecified (principal)
CPT/HCPCS: 99282-25

== ENCOUNTER 2022-12-30 04:28 | Day surgery (SDC) | payer OTHER ==
[2022-12-28 10:46] VITALS: BMI 32.3
[2022-12-30] MEDS ORDERED: DEXTROSE 5%-0.45% SALINE 1,000 ML IV SCH (13:15)
[2022-12-30] MEDS ORDERED: ACETAMINOPHEN 1000 MG/100 ML BAG IVPB ONE (13:30)
[2022-12-30] MEDS ORDERED: ACETAMINOPHEN INJECTION 100 ML IVPB ONE (14:04)
[2022-12-30] MEDS ORDERED: ceFAZolin SODIUM 1 GM VIAL IVPB ONE (14:19)
[2022-12-30] MEDS ORDERED: hydrALAZINE HCL 20 MG/ML VIAL IVPUSH ONE (15:12)
[2022-12-30] MEDS ORDERED: ONDANSETRON 4 MG/2 ML VIAL IVPUSH PRN (15:12)
[2022-12-30] MEDS ORDERED: PROMETHAZINE HCL 25 MG/1 ML VIAL IVPB PRN (15:12)
[2022-12-30] MEDS ORDERED: oxyCODONE HCL 5 MG TABLET PO PRN ×2 (15:12)
[2022-12-30] MEDS ORDERED: LACTATED RINGERS SOLUTION 1,000 ML IV SCH (15:15)
[2022-12-30] MEDS ORDERED: LIDOCAINE HCL 2% JELLY 11 ML TP ONE (16:48)
[2022-12-30 17:37] VITALS: TEMP 97.8
[2022-12-30 18:51] VITALS: BP 154/81; PULSE 70; RESP 20
== END 2022-12-30 18:35 | disposition home or self-care (01) ==
LOC: JASU-SURG 04:28
PROVIDERS: ATTEND Urology
PROC: 0T7D8DZ Dilation of Urethra with Intraluminal Device, Via Natural or Artificial Opening Endoscopic (ICD-10-PCS; 2022-12-30)
PROC: 0T7D8DZ Dilation of Urethra with Intraluminal Device, Via Natural or Artificial Opening Endoscopic (ICD-10-PCS; principal; 2022-12-30 14:00)
DX: N40.1 Benign prostatic hyperplasia with lower urinary tract symptoms (principal); R33.8 Other retention of urine
CPT/HCPCS: C9740; L8699; 94760

== ENCOUNTER 2023-01-09 21:01 | Emergency (ER) | payer OTHER ==
[2023-01-09 21:06] VITALS: TEMP 98.1; BMI 32.3
[2023-01-09] MEDS ORDERED: LIDOCAINE HCL 2% JELLY 11 ML TP ONE (21:34)
[2023-01-09 22:31] VITALS: BP 196/88; PULSE 85; RESP 16
== END 2023-01-09 22:40 | disposition home or self-care (01) ==
LOC: JER 21:01
DX: R33.9 Retention of urine, unspecified (principal)
CPT/HCPCS: 99283-25

== ENCOUNTER 2023-07-21 11:12 | Emergency (ER) | payer OTHER ==
[2023-07-21 11:22] VITALS: TEMP 97.7; BMI 32.3
[2023-07-21 12:36] LABS: EPI CELLS 3 /uL (0-25.1); HYALINE CASTS 1 /uL (0-3.1); PH,URINE 6.5 (5.0-8.0); URINE APPEARANCE CLEAR; URINE BACTERIA 5 /uL (0-1359); URINE BILIRUBIN NEGATIVE (NEGATIVE); URINE COLOR YELLOW; URINE GLUCOSE (UA) NEGATIVE (NEGATIVE); URINE KETONE NEGATIVE (NEGATIVE); URINE LEUK ESTERASE TRACE (NEGATIVE); URINE NITRITE NEGATIVE (NEGATIVE); URINE PROTEIN TRACE (NEGATIVE); URINE RBC 34 /uL (0-23.9); URINE UROBILINOGEN 0.2 mg/dL (0.2-1.0); URINE WBC 11 /uL (0-25.8)
[2023-07-21 12:38] LABS: POTASSIUM 4.5 mmol/L (3.5-5.1)
[2023-07-21 12:40] LABS: ALBUMIN 4.3 g/dl (3.4-5.0); BLOOD UREA NITROGEN 13.2 mg/dL (7-18); CALCIUM 9.6 mg/dL (8.5-10.1); MAGNESIUM 2.2 mg/dL (1.8-2.4)
[2023-07-21 12:45] LABS: BASO % 0.5 % (0-2.0); BILIRUBIN,TOTAL 0.9 mg/dL (0.2-1); EOS % 0.2 % (0-4.5); HEMATOCRIT 46.4 % (35.4-49); HEMOGLOBIN 15.9 GM/dL (11.7-16.9); LYMPH % 18.5 % (8-40); MCH 31.9 pg (25.7-33.7); MCHC 34.3 g/dl (32.0-35.9); MEAN CELL VOLUME 93.2 fl (80-96); MEAN PLT VOLUME 8.8 fl (7.5-11.1); MONO % 8.6 % (3.8-10.2); NEUT % 72.2 % (42.8-82.8); PLATELET COUNT 254 10^3/uL (134-434); RBC 4.98 M/mm3 (4.00-5.60); RDW 13.4 % (11.9-15.9); TOT PROT 8.3 g/dl (6.4-8.2); WHITE BLOOD COUNT 8.9 K/mm3 (4.0-10.0)
[2023-07-21 14:56] VITALS: BP 125/74; RESP 18
[2023-07-21 15:00] VITALS: PULSE 89
== END 2023-07-21 15:01 | disposition home or self-care (01) ==
LOC: JER 11:12
PROC: 0T9B70Z Drainage of Bladder with Drainage Device, Via Natural or Artificial Opening (ICD-10-PCS; principal; 2023-07-21)
DX: R33.9 Retention of urine, unspecified (principal); R10.30 Lower abdominal pain, unspecified
CPT/HCPCS: 36415; 76775-TC; 80053; 81003; 83735; 85025; 87086; 93005; 93010; 99285-25

== ENCOUNTER 2023-10-18 04:10 | Day surgery (SDC) | payer OTHER ==
[2023-10-17 10:19] VITALS: BMI 32.3
[2023-10-18 08:41] VITALS: RESP 18
[2023-10-18 12:08] VITALS: BP 184/85; PULSE 65; TEMP 98
== END 2023-10-18 12:20 | disposition home or self-care (01) ==
LOC: JRADIR 04:10
PROVIDERS: ATTEND Neurological Surgery
PROC: 009U3ZX Drainage of Spinal Canal, Percutaneous Approach, Diagnostic (ICD-10-PCS; principal; 2023-10-18)
PROC: B01BYZZ Fluoroscopy of Spinal Cord using Other Contrast (ICD-10-PCS; 2023-10-18)
DX: R26.89 Other abnormalities of gait and mobility (principal)
CPT/HCPCS: 62302; 62328; 72125-TC; 72128-TC; 72240-TC-FY; 72255-TC-FY

== ENCOUNTER 2024-10-21 02:27 | Inpatient (IN) | payer OTHER ==
[2024-10-21 03:51] LABS: EPI CELLS 9 /uL (0-25.1); HYALINE CASTS 5 /uL (0-3.1); PH,URINE 6.5 (5.0-8.0); URINE APPEARANCE TURBID; URINE BACTERIA 8911 /uL (0-1359); URINE BILIRUBIN NEGATIVE (NEGATIVE); URINE COLOR RED; URINE GLUCOSE (UA) NEGATIVE (NEGATIVE); URINE KETONE NEGATIVE (NEGATIVE); URINE LEUK ESTERASE 3+ (NEGATIVE); URINE NITRITE POSITIVE (NEGATIVE); URINE PROTEIN 2+ (NEGATIVE); URINE UROBILINOGEN 0.2 mg/dL (0.2-1.0); URINE WBC 14201 /uL (0-25.8)
[2024-10-21] MEDS ORDERED: CEFTRIAXONE 1 G/50 ML PREMIX 50 ML IVPB ONE (04:30)
[2024-10-21 04:36] LABS: BASO % 0.6 % (0-2.0); EOS % 0.9 % (0-4.5); HEMATOCRIT 42.7 % (35.4-49); HEMOGLOBIN 14.6 GM/dL (11.7-16.9); LYMPH % 14.8 % (8-40); MCH 32.6 pg (25.7-33.7); MCHC 34.2 g/dl (32.0-35.9); MEAN CELL VOLUME 95.4 fl (80-96); MEAN PLT VOLUME 8.2 fl (7.5-11.1); MONO % 6.9 % (3.8-10.2); NEUT % 76.8 % (42.8-82.8); PLATELET COUNT 347 10^3/uL (134-434); RBC 4.47 M/mm3 (4.00-5.60); RDW 13.5 % (11.9-15.9); WHITE BLOOD COUNT 9.4 K/mm3 (4.0-10.0)
[2024-10-21] MEDS: CEFTRIAXONE 1,000 MG in DEXTROSE 5%-WATER - 50 ML IVPB ONE (04:45)
[2024-10-21 05:01] LABS: POTASSIUM 4.2 mmol/L (3.5-5.1)
[2024-10-21 05:04] LABS: ALBUMIN 3.4 g/dl (3.4-5.0); BLOOD UREA NITROGEN 24.8 mg/dL (7-18); CALCIUM 9.5 mg/dL (8.5-10.1)
[2024-10-21 05:07] LABS: CREATININE 1.2 mg/dL (0.55-1.3)
[2024-10-21 05:09] LABS: BILIRUBIN,TOTAL 0.4 mg/dL (0.2-1); TOT PROT 7.3 g/dl (6.4-8.2)
[2024-10-21] MEDS ORDERED: ACETAMINOPHEN INJECTION 100 ML ONE (05:29)
[2024-10-21] MEDS: ACETAMINOPHEN 1000 MG/100 ML BAG IVPB ONE (05:36)
[2024-10-21] MEDS: SODIUM CHLORIDE 0.9% 500 ML INFUS.BAG IV ONE (05:36)
[2024-10-21] MEDS: ACETAMINOPHEN 500 MG TABLET (FP) PO ONE (05:36)
[2024-10-21] MEDS: KETOROLAC TROMETHAMINE 15 MG/ML VIAL IVPUSH ONE (07:30)
[2024-10-21] MEDS: SODIUM CHLORIDE 1,000 ML IV STA (07:30)
[2024-10-21] MEDS ORDERED: KETOROLAC TROMETHAMINE 15 MG/ML VIAL ONE (08:08)
[2024-10-21 08:30] LABS: URINE RBC 14884.1 /uL (0-23.9)
[2024-10-21] MEDS ORDERED: dilTIAZem HCL 125 MG/25 ML - 25 ML VIAL ONE (10:23)
[2024-10-21] MEDS: dilTIAZem HCL 50 MG/10 ML - 10 ML VIAL IVPUSH PRN (10:27)
[2024-10-21] MEDS ORDERED: LISINOPRIL 20 MG TABLET ONE ×2 (10:30→22:10)
[2024-10-21] MEDS ORDERED: CARVEDILOL 25 MG TABLET (FP) ONE (10:30)
[2024-10-21] MEDS: LISINOPRIL 20 MG TABLET PO SCH (10:34)
[2024-10-21] MEDS: CARVEDILOL 12.5 MG TABLET (FP) PO SCH (10:34)
[2024-10-21] MEDS: APIXABAN 5 MG TABLET PO SCH (10:36)
[2024-10-21] MEDS: FLECAINIDE ACETATE 100 MG TABLET PO SCH (10:54)
[2024-10-21] MEDS: FINASTERIDE 5 MG TABLET (FP) PO SCH (10:54)
[2024-10-21] MEDS: dilTIAZem HCL 50 MG/10 ML - 10 ML VIAL IVPUSH ONE (11:29)
[2024-10-21] MEDS ORDERED: CARVEDILOL 6.25 MG TABLET (FP) ONE (22:09)
[2024-10-21] MEDS ORDERED: TAMSULOSIN HCL 0.4 MG CAP ONE (22:10)
[2024-10-21] MEDS: TAMSULOSIN HCL 0.4 MG CAP PO SCH (22:16)
[2024-10-22 02:06] VITALS: BMI 30.9
[2024-10-22] MEDS: POLYETHYLENE GLYCOL (HEALTHYLAX) 3350 17 GM PACKET PO SCH (06:37)
[2024-10-22 08:31] LABS: HEMATOCRIT 39.4 % (35.4-49); HEMOGLOBIN 13.4 GM/dL (11.7-16.9); MCH 32.6 pg (25.7-33.7); MEAN PLT VOLUME 8.3 fl (7.5-11.1); PLATELET COUNT 334 10^3/uL (134-434); RBC 4.11 M/mm3 (4.00-5.60); RDW 13.1 % (11.9-15.9); WHITE BLOOD COUNT 8.3 K/mm3 (4.0-10.0)
[2024-10-22 08:50] LABS: POTASSIUM 4.4 mmol/L (3.5-5.1)
[2024-10-22 08:54] LABS: ALBUMIN 3.1 g/dl (3.4-5.0); BLOOD UREA NITROGEN 16.9 mg/dL (7-18); MAGNESIUM 2.1 mg/dL (1.8-2.4)
[2024-10-22 08:56] LABS: CREATININE 1.1 mg/dL (0.55-1.3); PHOSPHOROUS 2.6 mg/dL (2.5-4.9)
[2024-10-22 08:57] LABS: BILIRUBIN,TOTAL 0.6 mg/dL (0.2-1); TOT PROT 6.8 g/dl (6.4-8.2)
[2024-10-22] MEDS ORDERED: POLYETHYLENE GLYCOL (HEALTHYLAX) 3350 17 GM PACKET PO SCH (10:00)
[2024-10-22] MEDS: CEFTRIAXONE 1 G/50 ML PREMIX 50 ML IVPB SCH (10:32)
[2024-10-22] MEDS: METOPROLOL TARTRATE 5 MG/5 ML VIAL IVPUSH PRN ×2 (11:29→18:11)
[2024-10-22] MEDS: CEFTRIAXONE 1,000 MG in DEXTROSE 5%-WATER - 50 ML IVPB SCH (13:22)
[2024-10-22] MEDS: FLECAINIDE ACETATE 50 MG TABLET PO SCH (14:42)
[2024-10-23 08:38] LABS: HEMATOCRIT 38.5 % (35.4-49); HEMOGLOBIN 12.9 GM/dL (11.7-16.9); MCH 32.5 pg (25.7-33.7); MCHC 33.6 g/dl (32.0-35.9); MEAN CELL VOLUME 96.7 fl (80-96); PLATELET COUNT 322 10^3/uL (134-434); RBC 3.98 M/mm3 (4.00-5.60); RDW 13.6 % (11.9-15.9); WHITE BLOOD COUNT 8.8 K/mm3 (4.0-10.0)
[2024-10-23 08:41] LABS: POTASSIUM 4.4 mmol/L (3.5-5.1)
[2024-10-23 08:48] LABS: CALCIUM 9.3 mg/dL (8.5-10.1)
[2024-10-23 08:53] LABS: CREATININE 1.1 mg/dL (0.55-1.3)
[2024-10-24 15:11] VITALS: BP 154/78; PULSE 59; RESP 18; TEMP 98.4
== END 2024-10-24 16:08 | disposition home or self-care (01) | DRG 726 ==
LOC: JER 02:27 → JERBED 06:42 → J4S 23:46
PROVIDERS: ADMIT Internal Medicine; ATTEND Internal Medicine
DX: N40.1 Benign prostatic hyperplasia with lower urinary tract symptoms (principal); N39.0 Urinary tract infection, site not specified; I48.92 Unspecified atrial flutter; I48.91 Unspecified atrial fibrillation; I10 Essential (primary) hypertension; R00.0 Tachycardia, unspecified; R33.9 Retention of urine, unspecified; B96.20 Unspecified Escherichia coli [E. coli] as the cause of diseases classified elsewhere; R31.9 Hematuria, unspecified
CPT/HCPCS: 36415; 76775-TC; 76856-TC; 80048; 80053; 81003; 83735; 84100; 85025; 85027; 87086; 87186; 93005; 93010; 99285-25; J0131